=== PATIENT | female | born 1940 | race Caucasian/White ===

== ENCOUNTER → 2020-06-02 | Outpatient (CLI) | payer MEDICARE, OTHER ==
[2020-06-02 17:56] LABS: Source, Urine Voided
[2020-06-02 18:50] LABS: Bilirubin, Urine Neg (Neg); Blood, Urine 5+ (Neg); Glucose Qualitative, Urine Neg (Neg); Ketones, Urine Neg (Neg); Leukocyte Esterase, Urine 3+ (Neg); Nitrite, Urine Pos (Neg); Protein, Urine 2+ (Neg); Specific Gravity, Urine 1.015 (1.003-1.022); Urobilinogen, Urine NORM (Normal)
[2020-06-02 18:58] LABS: Appearance, Urine Hazy (Clear); Color, Urine Yellow (P-Yellow)
[2020-06-02 19:00] LABS: Bacteria Many /hpf; Red Blood Cells, Urine 25-50 /hpf (0-2); Squamous Epithelial Cells Rare /hpf (Few); White Blood Cells, Urine TNTC /hpf (0-5)
== END | disposition home or self-care (01) ==
LOC: LAB SHORT 14:09 → LAB 14:09
PROVIDERS: Advanced Practice Midwife
DX: R30.9 Painful micturition, unspecified (principal)
CPT/HCPCS: 81001; 87077; 87086; 87186

== ENCOUNTER 2020-09-18 13:57 | Emergency (ER) | payer MEDICARE, OTHER ==
[~2020-09-18] VITALS: Ht 152.4 cm; Wt 61.2 kg
[2020-09-18] MEDS ORDERED: FURO40 PO (16:11)
[2020-09-18] MEDS ORDERED: POTA10T PO (16:12)
[2020-09-18] MEDS ORDERED: Roxicodone5 MG PO (17:52)
[2020-09-18] MEDS ORDERED: Colace100 MG PO (17:52)
[2020-09-18] MEDS ORDERED: ZOFRAN4 MG PO (18:22)
== END 2020-09-18 19:21 | disposition home or self-care (01) ==
LOC: ER 13:57
DX: M54.5 Low back pain (principal); F17.200 Nicotine dependence, unspecified, uncomplicated; Z79.899 Other long term (current) drug therapy; Z88.0 Allergy status to penicillin; Z88.6 Allergy status to analgesic agent
CPT/HCPCS: 72100; 73502; 99283-25; J7512

== ENCOUNTER → 2021-05-25 | Outpatient (CLI) | payer OTHER | END | disposition home or self-care (01) | LOC: LAB 10:21 | DX: N89.8 Other specified noninflammatory disorders of vagina (principal) ==

== ENCOUNTER → 2021-06-17 | Outpatient (CLI) | payer OTHER ==
[~2021-06-17] MED LIST: Colace100 MG PO; FURO40 PO; POTA10T PO; Roxicodone5 MG PO; ZOFRAN4 MG PO
[2021-06-17 13:51] LABS: Source, Urine Catheter
[2021-06-17 15:29] LABS: Appearance, Urine Hazy (Clear); Bilirubin, Urine Neg (Neg); Blood, Urine 2+ (Neg); Glucose Qualitative, Urine Neg (Neg); Ketones, Urine Neg (Neg); Leukocyte Esterase, Urine 3+ (Neg); Nitrite, Urine Pos (Neg); Protein, Urine 1+ (Neg); Specific Gravity, Urine 1.005 (1.003-1.022); Urobilinogen, Urine NORM (Normal)
[2021-06-17 15:47] LABS: Color, Urine Pale Yellow (P-Yellow)
[2021-06-17 15:49] LABS: White Blood Cells, Urine 50-100 /hpf (0-5)
[2021-06-17 15:50] LABS: Bacteria Many /hpf; Squamous Epithelial Cells Mod /hpf (Few)
== END | disposition home or self-care (01) ==
LOC: LAB 09:25 → LAB SHORT 09:25
PROVIDERS: Obstetrics & Gynecology
DX: R33.9 Retention of urine, unspecified (principal)
CPT/HCPCS: 81001; 87077; 87086; 87186

== ENCOUNTER → 2021-08-18 | Outpatient (CLI) | payer OTHER ==
[2021-08-19 11:01] LABS: Candida species (DNA Probe) Negative (NEGATIVE); G. vaginalis (DNA Probe) Positive (NEGATIVE); T. vaginalis (DNA Probe) Negative (NEGATIVE)
== END | disposition home or self-care (01) ==
LOC: LAB SHORT 13:33 → LAB 13:33
PROVIDERS: Obstetrics & Gynecology
DX: A59.01 Trichomonal vulvovaginitis (principal)
CPT/HCPCS: 87480; 87510; 87660

== ENCOUNTER → 2021-11-23 | Outpatient (CLI) | payer OTHER ==
[2021-11-23 14:07] LABS: Candida species (DNA Probe) Negative (NEGATIVE); G. vaginalis (DNA Probe) Positive (NEGATIVE); T. vaginalis (DNA Probe) Negative (NEGATIVE)
== END | disposition home or self-care (01) ==
LOC: LAB SHORT 11:40
PROVIDERS: Obstetrics & Gynecology
DX: N89.8 Other specified noninflammatory disorders of vagina (principal)
CPT/HCPCS: 87480; 87510; 87660

== ENCOUNTER → 2022-01-25 | Outpatient (CLI) | payer OTHER ==
[~2022-01-25] MED LIST changes: +CIPR500 PO
[2022-01-25 12:19] LABS: Source, Urine Clean Catch
[2022-01-25 13:17] LABS: Appearance, Urine Hazy (Clear); Bilirubin, Urine Neg (Neg); Blood, Urine 4+ (Neg); Color, Urine Yellow (P-Yellow); Glucose Qualitative, Urine Neg (Neg); Ketones, Urine 1+ (Neg); Leukocyte Esterase, Urine 3+ (Neg); Nitrite, Urine Pos (Neg); Protein, Urine 2+ (Neg); Urobilinogen, Urine NORM (Normal)
[2022-01-25 13:34] LABS: White Blood Cells, Urine TNTC /hpf (0-5)
[2022-01-25 13:37] LABS: Bacteria Many /hpf; Mucus Light (0-Heavy); Squamous Epithelial Cells Rare /hpf (Few)
== END ==
LOC: LAB SHORT 12:17
PROVIDERS: Obstetrics & Gynecology
DX: R33.9 Retention of urine, unspecified (principal)
CPT/HCPCS: 81001

== ENCOUNTER → 2022-02-15 | Outpatient (CLI) | payer OTHER ==
[2022-02-16 10:18] LABS: Candida species (DNA Probe) Negative (NEGATIVE); G. vaginalis (DNA Probe) Negative (NEGATIVE); T. vaginalis (DNA Probe) Negative (NEGATIVE)
== END | disposition home or self-care (01) ==
LOC: LAB SHORT 10:28 → LAB 10:28
PROVIDERS: Obstetrics & Gynecology
DX: N89.8 Other specified noninflammatory disorders of vagina (principal)
CPT/HCPCS: 87480; 87510; 87660

== ENCOUNTER 2022-03-14 00:09 | Inpatient (IN) | payer MEDICARE, OTHER ==
[~2022-03-14] VITALS: Ht 152.4 cm; Wt 67.2 kg
[2022-03-14 01:52] LABS: BASOPHILS ABSOLUTE AUTO 0.03 K/mm3 (0.00-0.23); BASOPHILS PERCENT AUTO 0 % (0-2); EOSINOPHILS PERCENT AUTO 0 % (0-6); Hematocrit 35.2 % (33.0-51.0); Hemoglobin 11.2 g/dL (11.5-16.0); IMMATURE GRAN ABSOLUTE AUTO 0.07 K/mm3 (0.00-0.10); IMMATURE GRAN PERCENT AUTO 1 % (0-1); LYMPHOCYTES ABSOLUTE AUTO 0.84 K/mm3 (0.84-5.20); LYMPHOCYTES PERCENT AUTO 6 % (21-46); MONOCYTES ABSOLUTE AUTO 2.15 K/mm3 (0.16-1.47); MONOCYTES PERCENT AUTO 16 % (4-13); Mean Corpuscular HGB 28.2 pg (26.0-34.0); Mean Corpuscular HGB Conc 31.8 g/dL (31.5-36.5); Mean Corpuscular Volume 89 fL (80-100); Mean Platelet Volume 10.6 fL (9.1-12.4); NEUTROPHILS PERCENT AUTO 77 % (41-73); Platelet Count 244 K/mm3 (150-400); RDW Coefficient Variation 15.6 % (11.7-14.2); Red Blood Cell Count 3.97 M/mm3 (3.80-5.20); White Blood Cell Count 13.19 K/mm3 (4.00-11.30)
[2022-03-14 02:11] LABS: Alanine Aminotransfer (ALT/SGP 14 U/L (12-78); Albumin, Blood 2.9 g/dL (3.4-5.0); Albumin/Globulin Ratio 0.6 (0.8-1.8); Alk Phos 79 U/L (50-136); Anion Gap 5 mmol/L (6-16); Aspartate Aminotrans (AST/SGOT 10 U/L (12-37); Bilirubin, Total 0.9 mg/dL (0.1-1.0); Blood Urea Nitrogen 12 mg/dL (8-24); Bun/Creatinine Ratio 27.5 (12.0-20.0); CO2, Blood 31 mmol/L (21-32); Calcium, Blood 8.9 mg/dL (8.5-10.1); Chloride, Blood 98 mmol/L (98-108); Creatinine, Blood 0.44 mg/dL (0.40-1.00); Globulin, Blood 4.7 g/dL (2.2-4.0); Glomerular Filtration Rate >60 (60-); Glucose, Blood 136 mg/dL (70-99); Potassium, Blood 3.5 mmol/L (3.5-5.5); Sodium, Blood 134 mmol/L (136-145); Total Protein, Blood 7.6 g/dL (6.4-8.2)
[2022-03-14] MEDS ORDERED: LEVO750 PO (02:47)
[2022-03-14 03:45] LABS: Source, Urine Foley catheter
[2022-03-14 03:47] LABS: Bilirubin, Urine Neg (Neg); Blood, Urine 3+ (Neg); Glucose Qualitative, Urine Neg (Neg); Ketones, Urine 3+ (Neg); Leukocyte Esterase, Urine 2+ (Neg); Nitrite, Urine Pos (Neg); Protein, Urine 3+ (Neg); Specific Gravity, Urine 1.025 (1.003-1.022); Urobilinogen, Urine NORM (Normal)
[2022-03-14 04:38] LABS: SARS-Cov-2 (COVID-19) PCR, MMC NEGATIVE (NEGATIVE)
[2022-03-14 05:02] LABS: Appearance, Urine Cloudy (Clear); Color, Urine Yellow (P-Yellow)
[2022-03-14 05:04] LABS: Bacteria Many /hpf; Red Blood Cells, Urine 0-2 /hpf (0-2); Squamous Epithelial Cells Rare /hpf (Few)
--- NOTE | 2022-03-14 07:04 | NUR ---
SHIFT SUMMARY ASSUMED CARE OF PT AT 1900. PT IS A/OX4. [place]. HEAT SOUNDS TACHY, LUNG SOUNDS HAVE CRACKES IN THE L LUNG. PT DENIES SOB BUT C/O BACK PAIN, MEDICATED PER EMAR FOR PAIN BUT PT REQUESTING ICY/HOT. PASSED THIS ON TO DAYSHIFT NURSE IN REPORT DUE TO IT BEING AT THE END OF SHIFT. PT HAS A PROLAPSED BLADDER. ROBERTS PLACED BY PHYSICIAN, URINE DARK NICHOLE. PT WAS PLEASEANT AND HAD NO OTHER COMPLAINTS.
--- NOTE | 2022-03-14 08:00 | NUR ---
AM ASSESSMENT: Pt sitting at edge of bed. LS coarse, crackles and wheezing throughout. HR reg. BT positive. Pt states that she is having 6/10 back pain but denies wanting any medication for it. Pt has low grade temp so heat pack not offered. +4 edema in BLE, Pt states that she is often swollen in her BLE. Chronic patricia in place and draining dark, yellow urine. Pt states that she is "not sick" and wants to go home to take care of her kittens. Pt educated on need for antibiotics and for her lungs to improve. Pt encouraged to quit smoking. Pt non-receptive to education. Call light in reach. Will continue to monitor.
--- NOTE | 2022-03-14 17:56 | NUR ---
Shift Summary: Pt sitting at edge of bed. No acute changes this shift. Has been able to remain on RA throughout shift, even during ambulation. LS have remained with fine crackles and wheezing. Pt denies SOB. No changes in edema in BLE. Other VSS. Pt hopeful for discharge tomorrow. Will report to night RN.
--- NOTE | 2022-03-14 18:00 | NUR ---
HEPRIN GTT TURNED OFF PER ORDER. STABLE AT THIS TIME.
--- NOTE | 2022-03-15 06:22 | NUR ---
SHIFT SUMMARY PT RESTED WELL THROUGH THE NIGHT. ALERT AND ORIENTED, ABLE TO MAKE NEEDS KNOWN. SATS >95% ON ROOM AIR. NO TELE. NO PAIN. ROBERTS IN PLACE. VSS. ABX. PLANNING TO GO HOME TODAY. CALL LIGHT WITHIN REACH, BED IN LOWEST POSITION. WILL CONTINUE TO MONITOR.
[2022-03-15] MEDS ORDERED: CEFP200 PO (07:37)
[2022-03-15] MEDS ORDERED: DOXY100 PO (07:38)
[2022-03-15] MEDS ORDERED: VISBIOME 112.51 EACH PO (07:39)
[2022-03-15] MEDS ORDERED: IPRAT-ALBUT 0.5-3 ML INH (07:40)
--- NOTE | 2022-03-15 11:07 | NUR ---
DISCHARGE NOTE PT WAS ALERT AND ORIENTED T/O SHIFT, SHE ANSWERED QUESTIONS APPROPRIATELY AND WAS PLEASANT AND COOPERATIVE WITH CARE. SHE WAS SLOW TO RESPOND. VITAL SIGNS STABLE UPON DISCHARGE. SPO2 WAS 95% VIA ROOM AIR. PT DID REPORT FEELING SHORT OF BREATH UPON AMBULATION, SPO2 MAINTAINED >91% UPON AMBULATING. THIS NURSE DISCUSSED DISCHARGE INSTRUCTIONS WITH PT INCLUDING NEW MEDICATIONS, PHARMACY TO HAND STONER NEW MEDS, FOLLOW UP APPOINTMENTS. PT LEFT VIA WHEELCHAIR AT APPROX 1040 AND WAS ESCORTED BY [facility]. ALL OF PT BELONGINGS WENT WITH PT. IV IN LEFT WRIST WAS REMOVED BY TRANSPORTATION MANAGER UBALDO WITH SUPERVISION BY THIS NURSE. IV REMOVAL WAS WNL, W/ NO BLEEDING OR REDNESS.
== END 2022-03-15 10:40 | disposition home or self-care (01) | DRG 871 ==
LOC: ER 00:09 → PCU 04:26
PROVIDERS: Student in an Organized Health Care Education/Training Program; ADMIT Family Medicine
DX: A41.9 Sepsis, unspecified organism (principal); J18.9 Pneumonia, unspecified organism; N39.0 Urinary tract infection, site not specified; E87.1 Hypo-osmolality and hyponatremia; J44.0 Chronic obstructive pulmonary disease with (acute) lower respiratory infection; M79.89 Other specified soft tissue disorders; R60.0 Localized edema; D64.9 Anemia, unspecified; J44.9 Chronic obstructive pulmonary disease, unspecified; F17.210 Nicotine dependence, cigarettes, uncomplicated; Z96.641 Presence of right artificial hip joint; Z20.822 Contact with and (suspected) exposure to COVID-19; Z88.0 Allergy status to penicillin; Z88.1 Allergy status to other antibiotic agents; Z88.6 Allergy status to analgesic agent; T78.40XA Allergy, unspecified, initial encounter; T36.3X5A Adverse effect of macrolides, initial encounter
CPT/HCPCS: 36415; 71046; 80053; 81001; 83605; 83880; 84484; 85025; 87040; 87086; 93005; 93010; 93970; 94640; 94644; 94664; 94760; 96374; 99285-25; A9270; J0456; J0696; J1650; J1956; J7040; J7060; U0004

== ENCOUNTER → 2022-06-01 | Outpatient (CLI) | payer MEDICARE, OTHER ==
[~2022-06-01] MED LIST changes: +CEFP200 PO; +DOXY100 PO; +IPRAT-ALBUT 0.5-3 ML INH; +LEVO750 PO; +VISBIOME 112.51 EACH PO
[2022-06-01 13:30] LABS: Source, Urine Clean Catch
[2022-06-01 15:01] LABS: Appearance, Urine Cloudy (Clear); Bilirubin, Urine Neg (Neg); Blood, Urine 4+ (Neg); Color, Urine Yellow (P-Yellow); Glucose Qualitative, Urine Neg (Neg); Ketones, Urine Neg (Neg); Leukocyte Esterase, Urine 3+ (Neg); Nitrite, Urine Pos (Neg); Protein, Urine 2+ (Neg); Urobilinogen, Urine NORM (Normal)
[2022-06-01 15:24] LABS: Bacteria Many /hpf; Squamous Epithelial Cells Rare /hpf (Few); Transitional Epithelial Cells Rare /hpf (0-Rare); White Blood Cells, Urine TNTC /hpf (0-5)
== END | disposition home or self-care (01) ==
LOC: LAB SHORT 13:27
PROVIDERS: Obstetrics & Gynecology
DX: R33.9 Retention of urine, unspecified (principal)
CPT/HCPCS: 81001; 87077; 87086; 87186

== ENCOUNTER → 2022-09-07 | Outpatient (CLI) | payer OTHER ==
[2022-09-08 11:41] LABS: Candida species (DNA Probe) Negative (NEGATIVE); G. vaginalis (DNA Probe) Positive (NEGATIVE); T. vaginalis (DNA Probe) Negative (NEGATIVE)
== END | disposition home or self-care (01) ==
LOC: LAB 10:15 → LAB SHORT 10:15
PROVIDERS: Family Medicine
DX: N89.8 Other specified noninflammatory disorders of vagina (principal)
CPT/HCPCS: 87480; 87510; 87660

== ENCOUNTER → 2022-09-27 | Outpatient (CLI) | payer OTHER | END | disposition home or self-care (01) | DX: N39.0 Urinary tract infection, site not specified (principal) ==

== ENCOUNTER 2022-11-18 09:15 | Observation (INO) | payer MEDICARE, OTHER ==
[~2022-11-18] VITALS: Ht 154.9 cm; Wt 61.2 kg
[2022-11-18 09:53] LABS: BASOPHILS ABSOLUTE AUTO 0.02 K/mm3 (0.00-0.23); BASOPHILS PERCENT AUTO 0 % (0-2); EOSINOPHILS PERCENT AUTO 0 % (0-6); Hematocrit 36.7 % (33.0-51.0); Hemoglobin 12.5 g/dL (11.5-16.0); IMMATURE GRAN ABSOLUTE AUTO 0.07 K/mm3 (0.00-0.10); IMMATURE GRAN PERCENT AUTO 1 % (0-1); LYMPHOCYTES ABSOLUTE AUTO 0.63 K/mm3 (0.84-5.20); LYMPHOCYTES PERCENT AUTO 4 % (21-46); MONOCYTES ABSOLUTE AUTO 1.59 K/mm3 (0.16-1.47); MONOCYTES PERCENT AUTO 11 % (4-13); Mean Corpuscular HGB 31.7 pg (26.0-34.0); Mean Corpuscular HGB Conc 34.1 g/dL (31.5-36.5); Mean Corpuscular Volume 93 fL (80-100); Mean Platelet Volume 10.7 fL (9.1-12.4); NEUTROPHILS ABSOLUTE AUTO 12.62 K/mm3 (1.96-9.15); NEUTROPHILS PERCENT AUTO 85 % (41-73); Platelet Count 191 K/mm3 (150-400); RDW Standard Deviation 48.4 fL (35.1-46.3); Red Blood Cell Count 3.94 M/mm3 (3.80-5.20); White Blood Cell Count 14.93 K/mm3 (4.00-11.30)
[2022-11-18 10:09] LABS: Albumin, Blood 3.3 g/dL (3.4-5.0); Bilirubin, Total 1.1 mg/dL (0.1-1.0); Bun/Creatinine Ratio 38.7 (12.0-20.0); Calcium, Blood 8.4 mg/dL (8.5-10.1); Creatinine, Blood 0.44 mg/dL (0.40-1.00); Globulin, Blood 3.3 g/dL (2.2-4.0); Magnesium, Blood 1.8 mg/dL (1.6-2.4); Potassium, Blood 3.4 mmol/L (3.5-5.5); Total Protein, Blood 6.6 g/dL (6.4-8.2)
[2022-11-18 12:06] LABS: Source, Urine Straight Cath
[2022-11-18 12:20] LABS: Appearance, Urine Clear (Clear); Bilirubin, Urine Neg (Neg); Blood, Urine 3+ (Neg); Color, Urine Yellow (P-Yellow); Glucose Qualitative, Urine Neg (Neg); Ketones, Urine 2+ (Neg); Leukocyte Esterase, Urine Neg (Neg); Nitrite, Urine Neg (Neg); Protein, Urine 1+ (Neg); Urobilinogen, Urine NORM (Normal)
[2022-11-18 12:35] LABS: White Blood Cells, Urine 0-2 /hpf (0-5)
[2022-11-18 12:41] LABS: Squamous Epithelial Cells Rare /hpf (Few)
[2022-11-18 12:44] LABS: Mucus Heavy (0-Heavy)
[2022-11-18 12:45] LABS: Influenza A, PCR NEGATIVE (NEGATIVE); Influenza B, PCR NEGATIVE (NEGATIVE); Resp Syncytial Virus, PCR NEGATIVE (NEGATIVE); SARS-Cov-2 (COVID-19) PCR, MMC NEGATIVE (NEGATIVE)
[2022-11-18 12:45] LABS: Bacteria Few /hpf
--- NOTE | 2022-11-18 17:27 | NUR ---
CARE CONF WITH DR MOYER. PT LIVES INDEPENDENTLY AT [facility] IN [place] HERE WITH C/O LOWER BACK PAIN. PT IS REFUSING TO TAKE ALL MEDICATIONS (AND HAS FOR A WHILE) SHE IS REFUSING CARE AND VERBALIZES THAT SHE JUST WANTS TO BE COMFORTABLE. PT IS UNABLE TO GO BACK TO [facility] SHE IS REQUIRING MORE CARE AND PLAN IS TO ADMIT HER FOR COMFORT CARE AND PLACEMENT. COMFORT CARE ORDERS PLACED PER V/O DR MOYER. VISIT MADE TO PT IN THE ED, SHE IS LAYING SUPINE IN BED. SHE JUST RECEIVED ROXINOL FOR PAIN AND APPEARS TO BE RESTING COMF-FACE IS RELAXED AND BREATHING IS EVEN UNLABORED. PT AWAKENS EASILY TO TOUCH AND VOICE, REPORTS HER PAIN IS BETTER AND KNOWS SHE IS IN THE HOSITAL. SHE VERBALIZES THAT SHE JUST WANTS BE TO BE COMFORTABLE. PT VERBALIZES SHE DOESNT HAVE ANY FAMILY TO CONTACT. PLAN TO BEW ADMITED TO HOSP FOR COMFORT AND POSS PLACEMENT. PALLIATIVE CARE WILL CONT TO FOLLOW.
--- NOTE | 2022-11-18 18:43 | NUR ---
SHIFT SUMMARY MS RICO WAS ADMITTED TO THE MEDICAL UNIT FROM THE ER AT 1720HRS TODAY. NO FAMILY PRESENT ON ADMISSION. TRANSFERED TO BED ON A SLIDE SHEET. SHE IS ORIENTATED X3, ABLE TO TELL ME HER NAME, LOCATION AND DATE. SHE PRESSED ON HER RIGHT CHEST UNDER HER BREAST ON ARRIVAL, WHICH SEEMED PAINFUL, BUT WHEN WE GOT HER POSITIONED ON HER RIGHT SIDE IN BED SHE SAID SHE WAS COMFORTABLE WITH NO PAIN. SHE HAS BEEN SLEEPING SINCE. NO RESP DISTRESS. OFFERED FLUIDS/FOOD ON ARRIVAL WHICH SHE DECLINED. BED LOW, CALL LIGHT IN REACH, BED ALARM ON.
[2022-11-19] MEDS ORDERED: ESTRADIOL42.5 GM VAG (00:21)
--- NOTE | 2022-11-19 03:32 | NUR ---
YARD LABORER SUMMARY PT A/OX3. ABLE TO TELL ME WHERE AT BUT NOT RECALL WHY. REVIEWED COMFORT CARE PLAN WITH PT. UP TO BATHROOM SBA W/FWW. COMP OF 10/10 PAIN IN BACK; PT SHOULDERS TENSE WITH NECK AND ARMS TURNED IN. PAIN MEDS P/EMAR. PT REQ IV REMOVED. ADVISED I WOULD CONTACT F/PO PAIN MEDS. PT AGREEABLE TO LEAVE IV UNTIL NEW ORDER. PT SLEPT WELL T/O THE NIGHT. PT NOT USING CALL LIGHT; BED ALARM SET. CONT W/Q4 COMFORT ASSESSMENTS. ORIENTED TO ROOM AND CALL LIGHT; CALL LIGHT ACCESSIBLE.
--- NOTE | 2022-11-19 11:05 | NUR ---
RN NOTE MS RICO IS ABLE TO ANSWER ORIENTATION QUESTIONS FOR NAME, HOSPITAL IN [place] AND DATE. SHE HAS CONFUSED CONVERSATION AND IS FORGETFUL. SHE IS ABLE TO FOLLOW DIRECTIONS. SHE IS SITTING UP IN THE CHAIR, HAS WORKED WITH PHYSICAL THERAPY AND WALKED WITH WALKER/GAIT BELT. SHE HAS DENIED PAIN THIS MORNING, SAID HER BACK HURTS WHEN SHE PRESSES ON IT, BUT OTHERWISE NOT SORE. IN CHAIR. CHAIR ALARM ON, CALL LIGHT IN REACH.
--- NOTE | 2022-11-19 12:30 | NUR ---
Comfort care visit Visited with Missy this afternoon. She is sitting up in her chair. She denies pain at present, however she reports that her back is uncomfortable when she moves around or puts pressure on it. She states that she has no recollection of her fall or even coming to the hospital. No family in room during visit. Msisy is hoping to go home soon. She lives at [facility] in the independent living area. She reports that she has a cat who is currenlty be cared for by a friend. She states she is interested in not having to [facility]. She is alert and oriented during our conversation this afternoon. Discussed hospice as a possible option for after care which was discussed earlier with patient by the hospitalist. She is interested in some information, however she states she doesn't want to make any decisions at this time. Provided hospice brochure and considering comfort care booklet for information so that she can read about hospice and consider if this is a program that she may be interested in. She thanked this headline writer for the information. Her lunch tray was delivered during the end of our conversation, so the visit was kept short so that she could eat. Provided Missy with the number to the palliative care office if she had any questions about hospice.
--- NOTE | 2022-11-19 15:49 | NUR ---
RN NOTE MS RICO AND HER FRIEND VALARIE HAVE BEEN GIVEN WRITTEN AND VERBAL DISCHARGE INSTRUCTIONS AND VERBALISE UNDERSTANDING. VALARIE IS GIVING MS RICO A RIDE HOME, SHE LIVES IN THE ROOM OPPOSITE MS RICO AND SAID THAT MS RICO IS GOING TO BE STAYING WITH HER FOR THE TIME BEING. PIV REMOVED INTACT. SHE LEFT VIA WHEELCHAIR FOR DISCHARGE AT 1554HRS. SHE DENIED PAIN OR CONCERNS AT TIME OF DISCHARGE.
== END 2022-11-19 15:54 | disposition home health service (06) ==
LOC: ER 09:15 → MEDS 16:32 → ER 16:32 → MEDS 16:32
PROVIDERS: Emergency Medicine; ADMIT Family Medicine
DX: M54.9 Dorsalgia, unspecified (principal); Z51.5 Encounter for palliative care; J44.9 Chronic obstructive pulmonary disease, unspecified; W18.30XA Fall on same level, unspecified, initial encounter; Z20.822 Contact with and (suspected) exposure to COVID-19
CPT/HCPCS: 0241U; 36415; 70450; 71045; 72125; 72128; 72131; 73502; 80053; 81001; 83605; 83735; 84484; 85025; 93005; 93010; 97161; A9270; J0744; J1170; J2270; J7030

== ENCOUNTER → 2022-12-22 | Outpatient (CLI) | payer MEDICARE, OTHER ==
[~2022-12-22] MED LIST changes: +ESTRADIOL42.5 GM VAG
== END | disposition home or self-care (01) ==
LOC: LAB SHORT 18:59
DX: R30.0 Dysuria (principal)
CPT/HCPCS: 87086

== ENCOUNTER 2023-01-27 10:53 | Emergency (ER) | payer OTHER ==
[~2023-01-27] VITALS: Ht 157.5 cm; Wt 49.9 kg
== END 2023-01-27 14:15 | disposition home or self-care (01) ==
LOC: ER 10:53
DX: S22.41XA Multiple fractures of ribs, right side, initial encounter for closed fracture (principal); J44.9 Chronic obstructive pulmonary disease, unspecified; F17.210 Nicotine dependence, cigarettes, uncomplicated; Z88.0 Allergy status to penicillin; Z88.6 Allergy status to analgesic agent; Z88.1 Allergy status to other antibiotic agents; W19.XXXA Unspecified fall, initial encounter
CPT/HCPCS: 71101

== ENCOUNTER 2023-03-29 12:23 | Inpatient (IN) | payer MEDICARE, OTHER ==
[~2023-03-29] VITALS: Ht 165.1 cm; Wt 59.1 kg
[2023-03-29 13:31] LABS: BASOPHILS ABSOLUTE AUTO 0.03 K/mm3 (0.00-0.23); BASOPHILS PERCENT AUTO 0 % (0-2); EOSINOPHILS PERCENT AUTO 0 % (0-6); Hematocrit 39.4 % (33.0-51.0); Hemoglobin 12.8 g/dL (11.5-16.0); IMMATURE GRAN ABSOLUTE AUTO 0.04 K/mm3 (0.00-0.10); IMMATURE GRAN PERCENT AUTO 0 % (0-1); LYMPHOCYTES ABSOLUTE AUTO 0.76 K/mm3 (0.84-5.20); LYMPHOCYTES PERCENT AUTO 7 % (21-46); MONOCYTES ABSOLUTE AUTO 0.89 K/mm3 (0.16-1.47); MONOCYTES PERCENT AUTO 8 % (4-13); Mean Corpuscular HGB 30.8 pg (26.0-34.0); Mean Corpuscular HGB Conc 32.5 g/dL (31.5-36.5); Mean Corpuscular Volume 95 fL (80-100); Mean Platelet Volume 10.9 fL (9.1-12.4); NEUTROPHILS ABSOLUTE AUTO 8.86 K/mm3 (1.96-9.15); NEUTROPHILS PERCENT AUTO 84 % (41-73); NRBC ABSOLUTE 0.02 K/mm3 (0.00-0.02); NRBC Auto 0.2 /100 WBC (0.0-0.2); Platelet Count 188 K/mm3 (150-400); RDW Coefficient Variation 13.7 % (11.7-14.2); RDW Standard Deviation 48.1 fL (35.1-46.3); Red Blood Cell Count 4.16 M/mm3 (3.80-5.20); White Blood Cell Count 10.58 K/mm3 (4.00-11.30)
[2023-03-29 13:39] LABS: Source, Urine Straight Cath
[2023-03-29 13:44] LABS: Appearance, Urine Hazy (Clear); Bilirubin, Urine Neg (Neg); Blood, Urine 2+ (Neg); Color, Urine Yellow (P-Yellow); Glucose Qualitative, Urine Neg (Neg); Ketones, Urine 1+ (Neg); Leukocyte Esterase, Urine Neg (Neg); Nitrite, Urine Pos (Neg); Protein, Urine 1+ (Neg); Specific Gravity, Urine 1.025 (1.003-1.022); Urobilinogen, Urine NORM (Normal)
[2023-03-29 13:51] LABS: U Amphetamine Screen Not Detected; U Barbituate Screen Not Detected; U Benzodiazapine Screen Not Detected; U Buprenorphine Screen Not Detected; U Cannabinoids Screen Not Detected; U Cocaine Screen Not Detected; U Methadone Screen Not Detected; U Methamphetamine Screen Not Detected; U Opiates Screen Not Detected; U Oxycodone Screen Not Detected; U Phencyclidine Screen Not Detected; U Propoxyphene Screen Not Detected
[2023-03-29 14:10] LABS: Alanine Aminotransfer (ALT/SGP 18 U/L (12-78); Albumin, Blood 3.2 g/dL (3.4-5.0); Alk Phos 86 U/L (50-136); Anion Gap 4 mmol/L (6-16); Aspartate Aminotrans (AST/SGOT 24 U/L (12-37); Bilirubin, Total 0.8 mg/dL (0.1-1.0); Blood Urea Nitrogen 19 mg/dL (8-24); Bun/Creatinine Ratio 40.1 (12.0-20.0); CO2, Blood 31 mmol/L (21-32); CPK Creatine Kinase 138 U/L (26-193); Calcium, Blood 8.7 mg/dL (8.5-10.1); Chloride, Blood 101 mmol/L (98-108); Creatinine, Blood 0.47 mg/dL (0.40-1.00); Ethanol (Alcohol), Blood, Med <3 mg/dL; Globulin, Blood 3.3 g/dL (2.2-4.0); Glomerular Filtration Rate 96 (60-); Glucose, Blood 126 mg/dL (70-99); Potassium, Blood 4.1 mmol/L (3.5-5.5); Sodium, Blood 136 mmol/L (136-145); Total Protein, Blood 6.5 g/dL (6.4-8.2)
[2023-03-29 14:52] LABS: Amorphous Light (0-Heavy); Bacteria Many /hpf
[2023-03-29 14:53] LABS: Red Blood Cells, Urine 0-2 /hpf (0-2); Squamous Epithelial Cells Rare /hpf (Few); White Blood Cells, Urine 0-2 /hpf (0-5)
[2023-03-29 14:56] LABS: International Normalized Ratio 1.06; Prothrombin Time Results 11.1 Sec (9.7-11.5)
[2023-03-29 19:00] LABS: PCO2 Arterial 41.6 mmHg (35-45); PO2 Arterial 57.7 mmHg (80-100); pH Blood Arterial 7.48 (7.35-7.45)
[2023-03-29 21:13] VITALS: BP 169/102
[2023-03-29 22:07] LABS: Adenovirus Not Detected (NOT DETECT); Coronavirus 229E Not Detected (NOT DETECT); Coronavirus HKU1 Not Detected (NOT DETECT); Coronavirus NL63 Not Detected (NOT DETECT)
[2023-03-29 22:08] LABS: Bordetella pertussis Not Detected (NOT DETECT); Chlamydophila pneumoniae Not Detected (NOT DETECT); Coronavirus OC43 Not Detected (NOT DETECT); Human Metapneumovirus Not Detected (NOT DETECT); Human Rhinovirus/Enterovirus Not Detected (NOT DETECT); Influenza A/2009-H1 Not Detected (NOT DETECT); Influenza A/H1 Not Detected (NOT DETECT); Influenza A/H3 Not Detected (NOT DETECT); Influenza B Not Detected (NOT DETECT); Mycoplasma pneumoniae Not Detected (NOT DETECT); Parainfluenza Virus 1 Not Detected (NOT DETECT); Parainfluenza Virus 2 Not Detected (NOT DETECT); Parainfluenza Virus 3 Not Detected (NOT DETECT); Parainfluenza Virus 4 Not Detected (NOT DETECT); Respiratory Syncytial Virus Not Detected (NOT DETECT); SARS-Cov-2 (COVID-19), BioFire Not Detected (NOT DETECT)
--- NOTE | 2023-03-29 22:15 | NUR ---
TRANSFER NOTE THIS RN RECEIVED REPORT FROM JACKIE SANTANA IN THE ED VIA PHONE. PATIENT TRANSFERRED TO U 10 AT 2014. PATIENT SLID FROM GURNEY TO BED WITH STAFF ASSISTANCE. PATIENT NOTED TO ONLY BE ORIENTED TO SELF, YELLING FOR "HELP, NOT REDIRECTABLE, AND CONSISTENTLY PULLING AT ALL LINES AT TIME OF TRANSFER. BILATERAL SOFT WRIST RESTRAINTS IN PLACE. CALL PLACED TO MD BANKS REGARDING FACILITY BEING OUT OF STOCK OF ZYPREXA. PATIENT MEDICATED WITH IM HALDOL PER EMAR. PATIENT CONTINUES BEHAVIOR DESPITE MEDICATION. CAMERA ON IN ROOM FOR SAFETY. BED ALARM ON. ST ON MONITOR WITH HR 120-130'S. HTN NOTED. PATIENT CONTINUES TO BE AGGITATED AND RESTLESS IN BED. ON RA WITH SPO2 >92%. RR 22-24. WHEEZING NOTED IN UPPER LOBES. BS+. PPP. AFEBRILE. NS INFUSING PER EMAR. REPOSITIONING Q2HRS. FREQUENT CHECKS FOR SAFETY AND REASSURANCE. PATIENT IS [place]. BED IN LOWEST POSITION. THIS RN IS SITTING AT COMPUTER IN VIEW OF PATIENT'S ROOM.
[2023-03-29 23:00] VITALS: BP 139/85
[2023-03-30] VITALS (7 sets, daily range): BP systolic 107–148; BP diastolic 64–91
[2023-03-30 04:44] LABS: BASOPHILS ABSOLUTE AUTO 0.01 K/mm3 (0.00-0.23); BASOPHILS PERCENT AUTO 0 % (0-2); EOSINOPHILS PERCENT AUTO 0 % (0-6); Hematocrit 36.5 % (33.0-51.0); IMMATURE GRAN ABSOLUTE AUTO 0.03 K/mm3 (0.00-0.10); IMMATURE GRAN PERCENT AUTO 1 % (0-1); LYMPHOCYTES ABSOLUTE AUTO 0.29 K/mm3 (0.84-5.20); LYMPHOCYTES PERCENT AUTO 5 % (21-46); MONOCYTES ABSOLUTE AUTO 0.17 K/mm3 (0.16-1.47); MONOCYTES PERCENT AUTO 3 % (4-13); Mean Corpuscular HGB 31.1 pg (26.0-34.0); Mean Corpuscular HGB Conc 32.9 g/dL (31.5-36.5); Mean Corpuscular Volume 95 fL (80-100); Mean Platelet Volume 10.7 fL (9.1-12.4); NEUTROPHILS ABSOLUTE AUTO 5.31 K/mm3 (1.96-9.15); NEUTROPHILS PERCENT AUTO 91 % (41-73); Platelet Count 155 K/mm3 (150-400); RDW Coefficient Variation 13.7 % (11.7-14.2); RDW Standard Deviation 47.8 fL (35.1-46.3); Red Blood Cell Count 3.86 M/mm3 (3.80-5.20); White Blood Cell Count 5.81 K/mm3 (4.00-11.30)
[2023-03-30 05:06] LABS: Albumin, Blood 2.8 g/dL (3.4-5.0); Albumin/Globulin Ratio 0.9 (0.8-1.8); Bilirubin, Total 0.7 mg/dL (0.1-1.0); Bun/Creatinine Ratio 34.3 (12.0-20.0); Calcium, Blood 8.3 mg/dL (8.5-10.1); Creatinine, Blood 0.44 mg/dL (0.40-1.00); Globulin, Blood 3.1 g/dL (2.2-4.0); Magnesium, Blood 1.8 mg/dL (1.6-2.4); Phosphorus, Blood 3.1 mg/dL (2.5-4.9); Potassium, Blood 3.9 mmol/L (3.5-5.5); Total Protein, Blood 5.9 g/dL (6.4-8.2)
--- NOTE | 2023-03-30 06:10 | NUR ---
SHIFT SUMMARY NO ACUTE CHANGES OVERNIGHT. PATIENT CONTINUES TO BE ALERT TO SELF BUT APPEARS LESS AGGITATED AND FOLLOWING MORE SIMPLE COMMANDS. SR ON MONITOR WITH HR 80-90'S. BP STABLE. AFEBRILE. SPO2 >92% ON 2L. PATIENT SLEPT MOST OF THIS SHIFT AFTER IM HALDOL GIVEN PER EMAR. PATIENT OCCASIONALLY PULLING AT LINES AND MOVING LEGS. CAMERA CONTINUES TO BE ON IN THE ROOM. BED ALARM ON. LR INFUSING PER EMAR. PUREWICK IN PLACE. REPOSITIONING Q2HRS. BILATERAL WRIST RESTRAINTS. BED IN LOWEST POSITION AND CALL LIGHT WITHIN REACH. THIS RN WILL CONTINUE TO MONITOR UNTIL SHIFT CHANGE AT 0700.
--- NOTE | 2023-03-30 13:21 | NUR ---
PT ALERT AND ORIENTED TO SELF. UNABLE TO FULLY ASSESS ORIENTATION. PT [place] AND INTERMITTENTLY RESPONDS TO QUESTIONS. PT PLEASANT AND COOPERATIVE WITH CARE WHEN AWAKE. PT HAS BEEN SLEEPING THE MAJORITY OF THE SHIFT. WHEEZES AUSCULTATED THROUGHOUT, DIMINISHED AT BASES, 3L NC SATING ABOVE 94%. HR SR 80'S-90'S, PT DENIES CHEST PAIN/PRESSURE. SCATTERED BRUISING & SCABS THROUGHOUT. BLE EDEMA NOTED. PT INCONTINENT, WICKING SYSTEM IN PLACE, ATTENDS ON. REPOSITION Q 2 HRS. PT RESTING IN BED, CALL LIGHT WITHIN REACH.
--- NOTE | 2023-03-30 14:32 | NUR ---
NO ACUTE CHANGES. PT RESTING IN BED. SPEECH CLEARED PT FOR MECHANICAL SOFT & NECTAR THICK WITH CRUSHED MEDS. CALL LIGHT WITHIN REACH.
--- NOTE | 2023-03-30 18:05 | NUR ---
PT HAD NON SYMPTOMATIC 3 SECOND RUN OF SVT PER TELE MONITOR, PROVIDER NOTIFIED. NO ACUTE CHANGES, SEE PREVIOUS NOTES. PT EATING DINNER WHILE WATCHING TV. CALL LIGHT WITHIN REACH.
--- NOTE | 2023-03-31 02:41 | NUR ---
END OF SHIFT: PATIENT HAS BEEN VERY HARD OF HEARING, LEAVING MUCH TO BE ASSESSED AT TIMES, ESPECIALLY WITH ORIENTATION. PATIENT HAS BEEN PLEASANT, COOPERATIVE WITH CARE. PULSE OXIMETRY IN PROGRESS, PATIENT HAS BEEN AWAKE WHEN WALKING BY, MOST OF THE TIME. NO ACTIVE SIGNS OF CARDIAC DISTRESS. STILL ON NC 0-3L TITRATING BEINF PREFORMED BY RT. VIRTUAL SITTER AT THE BEDSIDE. NO ACTIVE CONCERNS FROM THIS RN, Q2 TURNS PREFORMED AUXILLARY STAFF.
[2023-03-31 04:50] VITALS: BP 151/104
[2023-03-31 07:01] VITALS: BP 158/95
[2023-03-31 11:00] VITALS: BP 137/88
--- NOTE | 2023-03-31 13:52 | NUR ---
PT ALERT AND ORIENTED TO SELF, PT EXTREMELY HARD OF HEARING SO UNABLE TO FULLY ASSESS. PT PLEASANT AND COOPERATIVE WITH CARE. LUNG SOUNDS DIMINISHED, PT HAS HX OF COPD, 02 SAT AROUND 90% ON RA, PT DENIES SOB. HR ST 100'S, PT DENIES CHEST PAIN/PRESSURE, BP STABLE. PW & ATTENDS IN PLACE FOR PT DUE TO INCONTINENCE. PT WAS CLEARED BY SPEECH THERAPY FOR THIN LIQUIDS/MECHANICAL SOFT. PT IN GOOD SPIRITS TODAY. RESTING IN BED AND WATCHING TV, CALL LIGHT WITHIN REACH.
--- NOTE | 2023-03-31 14:50 | NUR ---
PT UP IN CHAIR COLORING AND WATCHING TV. CHAIR ALARM SET.
[2023-03-31 15:11] VITALS: BP 129/80
--- NOTE | 2023-03-31 18:07 | NUR ---
WHILE SITTING IN CHAIR W/CHAIR ALARM, PT PULLED OUT HER IV W/O ACTIVATING ALARM. CHANTELLE SANTANA INSERTED NEW IV INTO PATIENT. PT TRANSFERRED VIA WHEELCHAIR WITH ALL OF HER BELONGINGS COLLECTED IN PATIENT BAGS BY JASPER WONG RN. JASPER WONG GAVE REPORT TO NURSE TAKING OVER PT'S CARE.
--- NOTE | 2023-03-31 18:37 | NUR ---
181 RECEIVED PT TO RM 306 FROM U 10 VIA W/C. PT ABLE TO TX TO BED WITH 1P ASSIST USING FWW. PT IS VERY WEAK AND WALES, MAKING IT DIFFICULT TO COMMUNICATE WITH. PER REPORT FROM JASPER, WRITING ON WHITE BOARD HAS BEEN HELPFUL. PT ADMITTED FOR RESP FAILURE/COPD EXAC, ALSO FOUND TO HAVE UTI. LEVAQUIN INFUSING AT THIS TIME. PT WITH HX OF COPD AND HEAVY SMOKER. PT REQUESTING TO GO OUT TO [facility] SOON SHE ARRIVED. PT REFUSED NICOTINE PATCH. PER REPORT, PT HAS BEEN NONCOMPLIANT WITH MEDS AT HOME. FREQUENT FALLS AT HOME WELL. NO KNOWN FAMILY, JUST A FRIEND NAMED VALARIE. SLEEP STUDY DONE LAST NIGHT; RESULTS SHOWING 2L O2 NEEDED AT HS. PT DENIED FURTHER NEEDS AT THIS TIME. CALL LT IN REACH. BED ALARM ON FOR SAFETY.
[2023-03-31 20:28] VITALS: BP 163/109
[2023-04-01 04:35] LABS: BASOPHILS ABSOLUTE AUTO 0.02 K/mm3 (0.00-0.23); BASOPHILS PERCENT AUTO 0 % (0-2); EOSINOPHILS PERCENT AUTO 0 % (0-6); Hematocrit 46.6 % (33.0-51.0); Hemoglobin 15.3 g/dL (11.5-16.0); IMMATURE GRAN ABSOLUTE AUTO 0.05 K/mm3 (0.00-0.10); IMMATURE GRAN PERCENT AUTO 0 % (0-1); LYMPHOCYTES ABSOLUTE AUTO 1.02 K/mm3 (0.84-5.20); LYMPHOCYTES PERCENT AUTO 9 % (21-46); MONOCYTES PERCENT AUTO 16 % (4-13); Mean Corpuscular HGB 30.8 pg (26.0-34.0); Mean Corpuscular HGB Conc 32.8 g/dL (31.5-36.5); Mean Corpuscular Volume 94 fL (80-100); Mean Platelet Volume 10.6 fL (9.1-12.4); NEUTROPHILS ABSOLUTE AUTO 8.59 K/mm3 (1.96-9.15); NEUTROPHILS PERCENT AUTO 75 % (41-73); Platelet Count 190 K/mm3 (150-400); RDW Coefficient Variation 14.1 % (11.7-14.2); RDW Standard Deviation 48.4 fL (35.1-46.3); Red Blood Cell Count 4.96 M/mm3 (3.80-5.20); White Blood Cell Count 11.48 K/mm3 (4.00-11.30)
[2023-04-01 04:51] LABS: Bun/Creatinine Ratio 32.8 (12.0-20.0); Calcium, Blood 9.2 mg/dL (8.5-10.1); Creatinine, Blood 0.49 mg/dL (0.40-1.00); Potassium, Blood 3.9 mmol/L (3.5-5.5)
[2023-04-01 04:52] VITALS: BP 170/101
[2023-04-01 07:41] VITALS: BP 152/88
--- NOTE | 2023-04-01 18:02 | NUR ---
SHIFT SUMMARY/TRANSFER NOTE PT AOX0-1, VERY CONFUSED AND AT TIMES AGGRESSIVE VERBALLY. SHE WAS VERY ACTIVE TODAY, ATTEMPTING TO GET OUT OF BED MULTIPLE TIMES AND REFUSING TO GET BACK INTO THE BED. A RECLINER WAS BROUGHT IN AND THAT HELPED BUT SOON SHE WAS GETTING OUT OF THE CHAIR AND WANTING TO WALK AROUND ON THE FLOOR. WHILE WALKING AROUND THE FLOOR, SHE WOULD YELL IN PT'S ROOMS. THE PT WOULD BE YELLING WORDS AND NAMES THAT WERE NOT APPLICABLE TO THE SETTING. IV HALDOL WAS ADMINISTERED AND IT APPEARED TO HELP THE PT CALM DOWN A BIT. THE REFORESTATION WORKER WALKED WITH HER IN THE RECLILNER THROUGHOUT THE HALLS BECAUSE THE PT WOULD ATTEMPT TO GET UP AND LEAVE, YELLING, IF ATTEMPTING TO RE-ENTER THE ROOM. THE PT HAS SINCE BEE TRANSFERRED BACK INTO THE SCU ON CAMERA. REPORT WAS GIVEN TO MAX RADER.
[2023-04-01 19:44] VITALS: BP 144/95
[2023-04-02 04:10] VITALS: BP 167/104
[2023-04-02 05:42] LABS: BASOPHILS ABSOLUTE AUTO 0.02 K/mm3 (0.00-0.23); BASOPHILS PERCENT AUTO 0 % (0-2); EOSINOPHILS ABSOLUTE AUTO 0.01 K/mm3 (0.00-0.68); EOSINOPHILS PERCENT AUTO 0 % (0-6); Hematocrit 47.6 % (33.0-51.0); Hemoglobin 15.6 g/dL (11.5-16.0); IMMATURE GRAN ABSOLUTE AUTO 0.02 K/mm3 (0.00-0.10); IMMATURE GRAN PERCENT AUTO 0 % (0-1); LYMPHOCYTES ABSOLUTE AUTO 1.12 K/mm3 (0.84-5.20); LYMPHOCYTES PERCENT AUTO 13 % (21-46); MONOCYTES ABSOLUTE AUTO 1.33 K/mm3 (0.16-1.47); MONOCYTES PERCENT AUTO 15 % (4-13); Mean Corpuscular HGB 30.2 pg (26.0-34.0); Mean Corpuscular HGB Conc 32.8 g/dL (31.5-36.5); Mean Corpuscular Volume 92 fL (80-100); NEUTROPHILS ABSOLUTE AUTO 6.46 K/mm3 (1.96-9.15); NEUTROPHILS PERCENT AUTO 72 % (41-73); Platelet Count 165 K/mm3 (150-400); RDW Coefficient Variation 13.9 % (11.7-14.2); RDW Standard Deviation 47.6 fL (35.1-46.3); Red Blood Cell Count 5.16 M/mm3 (3.80-5.20); White Blood Cell Count 8.96 K/mm3 (4.00-11.30)
[2023-04-02 06:16] LABS: Bun/Creatinine Ratio 28.3 (12.0-20.0); Calcium, Blood 8.9 mg/dL (8.5-10.1); Creatinine, Blood 0.46 mg/dL (0.40-1.00); Potassium, Blood 3.2 mmol/L (3.5-5.5)
[2023-04-02 07:24] VITALS: BP 155/99
--- NOTE | 2023-04-02 07:29 | NUR ---
patient awake all night trying to get oob. yelling out and hallucinating both visually and audibly. vest restraint placed for patient safety at 2030 so patient would not fall out of bed. patient pulled off tele twice before it was dc'd. Rhythm prior to that was SR/ST 90's to 100's. Call placed to hospitalist after previously ordered Haldol was given with no effect. Order for 10mg Geodon IM rec'd and given with no effect. No indication of pain or discomfort overnight.
[2023-04-02 16:01] VITALS: BP 138/96
--- NOTE | 2023-04-02 17:25 | NUR ---
PATIENT ALERT AND ORIENTED TO SELF ONLY. AWAKE ALL SHIFT HAVING AUDITORY AND VISUAL HALLUCINATIONS. FELIBERTO VEST RESTRAINT IN PLACE TO MAINTAIN SAFETY WELL A VIRTUAL RESOURCES REPRESENTATIVE. ANTIBIOTICS STARTED TO TREAT UTI AND NS INFUSING AT 75ML/HR. ATTEMPTED TO FEED PATIENT MEALS AND SHE REFUSED TO EAT. INCONTINENT OF BLADDER, WEARING ATTENDS. DENIES ANY PAIN. SKIN INTACT.
[2023-04-02 19:43] VITALS: BP 147/113
[2023-04-02 20:01] VITALS: BP 118/72
--- NOTE | 2023-04-03 03:42 | NUR ---
PT HAS VARIANCE IN BEHAVIOR THROUGHOUT SHIFT. FOR SEVERAL HOURS DURING FIRST HALF OF SHIFT PT WAS RELAXED, NOT PULLING AT RESTRAINTS, NOT BEHAVING IMPULSIVELY, AND FOLLOWING VERY SIMPLE COMMANDS. REMOVED RESTRAINTS AT ABOUT 2300 DUE TO PERCEIVED LACK OF NEED TO GUARANTEE SAFETY. WITHIN 20 MINUTES OF RESTRAINT REMOVAL PT WAS AGITATED, IMPULSIVE, ATTEMPTING OOB, IMPOSSIBLE TO REDIRECT, ETC. PUT RESTRAINTS BACK ON AT ABOUT 2330, WITHIN 1 HOUR WINDOW OF REMOVAL. PT CONTINUED TO PULL AT RESTRAINTS, BECOME INCREASINGLY AGITATED, AND GRAB AT IV POLE. ADMINISTERED PRN IM HALDOL AND WITHIN AN HOUR PT WAS RESTING COMFORTABLY. DOES NOT APPEAR TO BE SLEEPING COMPLETELY BUT IS NOW RELAXED IN BED. ORDER FOR RESTRAINT RENEWAL RECEIVED FROM DR. JONES AT 2145. DID NOT INPUT NEW ORDER SO CLICKING MACHINE OPERATORMAX MORELAND INPUT NEW ORDER FROM DR. VARGAS AT 0203 THIS MORNING. RESTRAINT DOCUMENTATION COMPLETED ON SCHEDULE THROUGHOUT SHIFT. NO NEW SKIN ABNORMALITIES OR CHANGE IN MENTATION NOTED BASED ON REPORT FROM DAY SHIFT. SATTING WELL ON ROOM AIR. BED IS LOCKED IN LOWEST POSITION. REMOTE MONITORING CAMERA IN PLACE. CALL LIGHT LEFT WITHIN REACH ALTHOUGH PT DOES NOT USE CALL LIGHT.
[2023-04-03 04:16] VITALS: BP 155/92
[2023-04-03 07:06] VITALS: BP 151/77
[2023-04-03 15:08] VITALS: BP 108/71
--- NOTE | 2023-04-03 18:08 | NUR ---
PATIENT MORE RESTFUL THIS SHIFT. WOKE FOR LUNCH AND ATE ABOUT 30%. IV FLUIDS D/C'D. CONTINUES ON ROCEPHIN TO TREAT UTI. VSS, ON RA. BREATHING TREATMENTS PRN. FELIBERTO VEST AND VIRTUAL SUPERVISOR TRAVEL TRAILER TO MAINTAIN SAFETY. DENIES ANY PAIN. A/O TO SELF ONLY. SPOKE WITH JOSE CARLOS FROM PALLIATIVE CARE AND SHE WILL BE BY TOMORROW TO SPEAK WITH PATIENT.
[2023-04-03 19:08] VITALS: BP 81/52
[2023-04-03 19:11] VITALS: BP 114/61
--- NOTE | 2023-04-04 01:03 | NUR ---
PT AWOKE AT ABOUT 0040 REQUESTING TO USE RESTROOM. TRANSFERRED TO RESTROOM VIA 1 PERSON ASSIST WITH GAIT BELT AND WALKER. SOMEWHAT ORIENTED ALTHOUGH DIFFICULT TO COMPLETELY ASSESS SHE REFUSES TO ANSWER QUESTIONS DUE TO AGITATION. APPEARS TO UNDERSTANDS QUESTIONS AND COMMANDS. VERY AGITATED. REMOVED RESTRAINTS UPON EXPLAINING CONDITIONS OF NOT HAVING RESTRAINTS IN PLACE. PT APPEARED TO UNDERSTAND NEED TO STAY IN BED AND CALL FOR HELP SHE NEEDS IT BUT DIFFICULT TO TELL FOR SURE SHE IGNORES ALL QUESTIONS/DIRECTIONS WHEN AGITATED. WILL CONTINUE TO MONITOR.
[2023-04-04 03:32] VITALS: BP 123/69
--- NOTE | 2023-04-04 04:20 | NUR ---
PT SLEPT FOR FIRST HALF OF SHIFT. AWOKE THIS MORNING WANTING TO GO TO RESTROOM. 1 PERSON ASSIST TO BATHROOM WITH GAIT BELT AND WALKER. REFUSED TO GO BACK TO BED AND BECAME VERY AGITATED AND ESCALATED UPON BEING TOLD THAT SHE COULD NOT GO GET COFFEE FOR HERSELF. SINCE BEING PUT BACK INTO BED, PT HAS BEEN AWAKE IN BED. PROVIDED WITH WATER AND PUDDING WHICH SHE ATE. ONLY SPORADICALLY IMPULSIVE NOW. REMAINS AGITATED, DIFFICULT TO REDIRECT, RUDE WITH STAFF. SEEMS SOMEWHAT ORIENTED BUT DOES NOT ANSWER QUESTIONS DUE TO FRUSTRATIONS. CLEARLY ABLE TO UNDERSTAND DIRECTIONS AND QUESTIONS EVEN IF SHE DOES NOT RESPOND APPROPRIATELY. VERY [place]. BED REMAINS LOCKED IN LOWEST POSITION. CALL LIGHT LEFT WITHIN REACH WHICH SHE HAS USED APPROPRIATELY ONE TIME.
[2023-04-04 07:07] LABS: Bun/Creatinine Ratio 32.2 (12.0-20.0); Calcium, Blood 8.6 mg/dL (8.5-10.1); Creatinine, Blood 0.47 mg/dL (0.40-1.00); Potassium, Blood 3.4 mmol/L (3.5-5.5)
[2023-04-04 07:52] VITALS: BP 136/75
--- NOTE | 2023-04-04 14:23 | NUR ---
Met with pt this am, she is extremely [place], but she was able to understand when I spoke slowly and at increased volume. She expressed discouragement; states she has "No idea what's going on", but when I told her she is at [facility], she states she believes it, but verbalizes feeling confused. I assured her I would keep her updated, and asked if I could call her brother and/or nephew. She was agreeable to this. Attempted to reach her nephew, but the phone number is outdated. The man who answered stated it isn't Apolinar's number any longer, but he continues to recieve calls on it from multiple places in [place]. Attempted to call her brother Rojas, reached a generic voicemail. I identified myself, and requested Rojas return my call if this is his number. Will also attempt to gather more information from the facility where pt came from in [place]. Pt has denied knowing any phone numbers for Apolinar or Rojas.
--- NOTE | 2023-04-04 16:31 | NUR ---
Pt's friend Shawna stopped by today to see her, and states she lives across the null from her. The pt's face lit up when she saw her, and they conversed for an hour or so. Although pt is [place], she was able to understand Shawna very well. Both Shawna and pt report that Shawna helps pt often with shopping, ADL's, cleaning, etc. With Shawna's help, we had a conversation regarding code status. The pt made it clear she would not want to be resucitated in the event her heart stopped. However, she would return to the hospital for antibiotics or other treatment. She did state she would never want to be placed on life support, no advanced airway interventions. We reviewed, filled out POLST and she signed it, will get signed by Dr. Cullen in the am. Code status changed to DNR.
[2023-04-04 16:59] VITALS: BP 95/66
[2023-04-04 17:04] VITALS: BP 105/71
--- NOTE | 2023-04-04 17:22 | NUR ---
DAYSHIFT SUMMARY Patient tired, slept t/o the day. CONCILIATOR evaluated patient this morning & ordered 1:1 feeding, for safety. Patient got OOB & worked with PT/OT, sat in the chair all afternoon. Pleasant & cooperative, did not try to get out of the chair. Patient able to feed self, but 1:1 for safety. Removed mily vest at 1600. Vitals stable, BP soft. Continuing IV ABX, will continue plan of care.
[2023-04-04 19:25] VITALS: BP 121/74
[2023-04-05 02:31] VITALS: BP 141/78
--- NOTE | 2023-04-05 03:52 | NUR ---
PT HAS BEEN SLEEPING THROUGHOUT SHIFT. WAS AWAKE IN CHAIR UPON SHIFT CHANGE. WAS FOLLOWING DIRECTIONS AND SPORADICALLY ANSWERING QUESTIONS BUT WAS DIFFICULT TO ASSESS ORIENTATION SHE WOULD IGNORE MOST OF MY QUESTIONS. DESPITE THIS, IS ABLE TO MAKE NEEDS KNOWN. MOSTLY COOPERATIVE WITH CARE BUT CAN BE VERY EASILY IRRITABLE WHEN NOT ALLOWED TO DO WHAT SHE WANTS TO DO OR WHEN SHE FEELS LIKE SHE IS BEING "BABIED". OVERALL, PT MENATION HAS IMPROVED GRADUALLY EVERY NIGHT SINCE SUNDAY NIGHT. APPEARS TO BE MOSTLY ORIENTED AT THIS POINT EVEN IF IT IS DIFFICULT TO TELL FOR SURE DUE TO HER AGITATION AND IGNORING MY QUESTIONS. STEADY 1-PERSON ASSIST WITH WALKER FROM CHAIR TO BED. BED LOCKED IN LOWEST POSITION. REMOTE MONITORING IN PLACE. CALL LIGHT LEFT WITHIN REACH.
[2023-04-05 07:15] VITALS: BP 136/87
[2023-04-05 15:12] VITALS: BP 101/64
--- NOTE | 2023-04-05 17:54 | NUR ---
SHIFT SUMMARY: Pt awake and alert X2-3 today. Unsure of date. [place]. Up to chair with one person ast for 5 hours. Ambulated in null with RW and PT. Able to feed self mech soft diet. Incontinent of urine at times. C/o headache and received order for Motrin. Bed locked, pt able to demonstrate use of call light when needed. Avasure monitor in place.
--- NOTE | 2023-04-05 18:08 | NUR ---
THIS ELECTRICAL ACCESSORIES II ASSEMBLER HAS REVIEWED AND AGREES WITH ALL NOTES AND ASSESSMENTS BY MAX LIRA.
[2023-04-05 20:03] VITALS: BP 115/69
[2023-04-06 02:59] VITALS: BP 130/72
[2023-04-06 05:05] LABS: BASOPHILS ABSOLUTE AUTO 0.02 K/mm3 (0.00-0.23); BASOPHILS PERCENT AUTO 0 % (0-2); EOSINOPHILS ABSOLUTE AUTO 0.09 K/mm3 (0.00-0.68); EOSINOPHILS PERCENT AUTO 1 % (0-6); Hematocrit 42.4 % (33.0-51.0); Hemoglobin 13.8 g/dL (11.5-16.0); IMMATURE GRAN ABSOLUTE AUTO 0.03 K/mm3 (0.00-0.10); IMMATURE GRAN PERCENT AUTO 0 % (0-1); LYMPHOCYTES ABSOLUTE AUTO 0.84 K/mm3 (0.84-5.20); LYMPHOCYTES PERCENT AUTO 9 % (21-46); MONOCYTES PERCENT AUTO 16 % (4-13); Mean Corpuscular HGB 30.8 pg (26.0-34.0); Mean Corpuscular HGB Conc 32.5 g/dL (31.5-36.5); Mean Corpuscular Volume 95 fL (80-100); Mean Platelet Volume 11.3 fL (9.1-12.4); NEUTROPHILS ABSOLUTE AUTO 6.54 K/mm3 (1.96-9.15); NEUTROPHILS PERCENT AUTO 73 % (41-73); Platelet Count 157 K/mm3 (150-400); RDW Coefficient Variation 13.9 % (11.7-14.2); RDW Standard Deviation 48.7 fL (35.1-46.3); Red Blood Cell Count 4.48 M/mm3 (3.80-5.20); White Blood Cell Count 8.92 K/mm3 (4.00-11.30)
[2023-04-06 05:22] LABS: Bun/Creatinine Ratio 28.9 (12.0-20.0); Calcium, Blood 8.6 mg/dL (8.5-10.1); Creatinine, Blood 0.49 mg/dL (0.40-1.00); Potassium, Blood 4.2 mmol/L (3.5-5.5)
--- NOTE | 2023-04-06 06:02 | NUR ---
ORIENTATION IS IMPROVING, PATIENT WAS NOT IMPULSIVE. PT PLEASANT, COOPERATIVE. VSS, AO, MAKES NEEDS KNOWN, X1 ASSIST TO TOILET, AVASURE IN PLACE DUE TO RECENT CONFUSION/IMPULSIVENESS. UNEVENTFUL NIGHT.
[2023-04-06 07:34] VITALS: BP 106/67
[2023-04-06 15:11] VITALS: BP 111/61
--- NOTE | 2023-04-06 16:30 | NUR ---
SHIFT SUMMARY: Pt remains A&O X3 this shift. [place]. Able to communicate needs. Ambulating with walker and 1 person ast. Lung sounds with exp wheeze and fine crackles. RT providing nebulizer tx. Pt feeds self, average appetite. Dysphagia precautions still in place. No difficulties noted or verbalized. Motrin effective for headache. Pt sitting up in chair this pm. Call light in reach. No further needs id or verbalized at this time. Will continue to monitor this shift.
--- NOTE | 2023-04-06 17:31 | NUR ---
THIS RING STRIKER HAS REVIEWED AND AGREES WITH ALL NOTES AND ASSESSMENTS BY MAX LIRA.
[2023-04-06 20:30] VITALS: BP 110/72
[2023-04-07 05:59] VITALS: BP 143/108
[2023-04-07 06:07] VITALS: BP 149/94
[2023-04-07 07:15] VITALS: BP 101/70
[2023-04-07 15:03] VITALS: BP 124/77
--- NOTE | 2023-04-07 18:23 | NUR ---
SUMMARY- PT AAOX3-4 THIS SHIFT. CALLS APPROPRIATELY. PT WALKING IN THE HALLS WITH PT TODAY AND TO THE BATHROOM WITH STAFF. SBA.
[2023-04-07 19:27] VITALS: BP 108/78
[2023-04-08] MEDS ORDERED: ESTRADIOL42.5 GM VAG (04:28)
--- NOTE | 2023-04-08 06:19 | NUR ---
UNEVENTFUL NIGHT. SBA TO TOILET WITH SOME INCONTINENT VOIDING. AO, PLEASANT, VSS, [place] BUT MAKES NEEDS KNOWN AND COOPERATIVE.
[2023-04-08 07:21] VITALS: BP 102/65
[2023-04-08 15:33] VITALS: BP 100/67
--- NOTE | 2023-04-08 18:17 | NUR ---
SUMMARY- NO ACUTE EVENTS THIS SHIFT. SBA. AAOX4. CALM AND COOPERATIVE. PT AT NEW BASELINE.
[2023-04-08 19:22] VITALS: BP 113/64
--- NOTE | 2023-04-09 05:55 | NUR ---
NO SIGNIFICANT CHANGES LAST NIGHT. PT IS AO, SBA ASSIST WITH WALKER, PLEASANT, DENIES PAIN, VSS, INCONTINENT OF URINE. SHOWERED THIS MORNING TO PREP FOR POSSIBLE DC.
[2023-04-09 07:30] VITALS: BP 104/78
[2023-04-09 15:36] VITALS: BP 105/64
--- NOTE | 2023-04-09 17:35 | NUR ---
SUMMARY- NO ACUTE EVENTS THIS SHIFT. PT IS SBA. AAOX4. PT IS AT THE NEW BASELINE.
[2023-04-09 19:24] VITALS: BP 122/68
--- NOTE | 2023-04-10 04:37 | NUR ---
SHIFT SUMMARY: A&O X 3, ABLE TO MAKE NEEDS KNOWN. NO COMPLAINT OF CHEST PAIN OR DISCOMFORT. RESPIRATIONS EVEN UNLABORED NO COUGH. BOWEL TONES HYPOACTIVE ALL 4 QUADRANTS. MEDS CRUSHED APPLESAUCE. SLEPT WELL THIS NIGHT, WOKE 1 TIME AND SAT EDGE OF BED. DISCHARGE ON HOLD FOR RESOURCES IN THE HOME. SBA 1 FOR ALL TRANSFERS WITH WALKER.
[2023-04-10 04:44] VITALS: BP 109/66
[2023-04-10 07:14] VITALS: BP 102/66
[2023-04-10 13:34] LABS: Bun/Creatinine Ratio 16.3 (12.0-20.0); Calcium, Blood 8.8 mg/dL (8.5-10.1); Creatinine, Blood 0.49 mg/dL (0.40-1.00); Potassium, Blood 4.8 mmol/L (3.5-5.5)
[2023-04-10] MEDS ORDERED: POTCHL20ER PO (14:41)
[2023-04-10] MEDS ORDERED: NICO21TP TOP (14:41)
--- NOTE | 2023-04-10 16:30 | NUR ---
PT DISCHARGED 1620 WITH DC INSTRUCTIONS. SENT HOME WITH BELONGINGS INCLUDING A PLASTIC CUP WITH ALL HER RINGS AND JEWFAUSTINOY- SAW 3 RINGS A PENDANT AND 2 NECKLACES. AWARE OF FOLLOW-UP VISITS, BUT STATES, "HOW AM I SUPPOSED TO DO A TELEPHONE VISIT IF I CANT EVEN HEAR". WHEELCHAIR TRANSPORT WHEELED PT WITH HER BELONGINGS INCLUDING HER CLOTHS AND PINK ROBE, BACK TO HER FACILITY AT [facility].
== END 2023-04-10 16:15 | disposition home health service (06) | DRG 689 ==
LOC: ER 12:23 → MEDS 20:01 → PCU 20:01 → MEDS 03-31 18:11
PROVIDERS: Emergency Medicine; Internal Medicine; ADMIT Hospitalist
PROC: 4A033R1 Measurement of Arterial Saturation, Peripheral, Percutaneous Approach (ICD-10-PCS; principal; 2023-03-29)
DX: N39.0 Urinary tract infection, site not specified (principal); G93.41 Metabolic encephalopathy; E87.3 Alkalosis; J44.1 Chronic obstructive pulmonary disease with (acute) exacerbation; J96.12 Chronic respiratory failure with hypercapnia; J96.11 Chronic respiratory failure with hypoxia; G93.1 Anoxic brain damage, not elsewhere classified; E87.6 Hypokalemia; B96.20 Unspecified Escherichia coli [E. coli] as the cause of diseases classified elsewhere; B95.5 Unspecified streptococcus as the cause of diseases classified elsewhere; Z20.822 Contact with and (suspected) exposure to COVID-19; F17.210 Nicotine dependence, cigarettes, uncomplicated; M16.12 Unilateral primary osteoarthritis, left hip; E86.9 Volume depletion, unspecified; Z96.641 Presence of right artificial hip joint; Z98.890 Other specified postprocedural states; Z98.51 Tubal ligation status; Z88.8 Allergy status to other drugs, medicaments and biological substances; Z88.5 Allergy status to narcotic agent; Z88.0 Allergy status to penicillin; Z79.899 Other long term (current) drug therapy; Z46.6 Encounter for fitting and adjustment of urinary device; Z88.1 Allergy status to other antibiotic agents; Z78.1 Physical restraint status
CPT/HCPCS: 0202U; 36415; 36600; 51701; 70450; 71045; 72170; 80048; 80053; 81001; 82140; 82436; 82550; 82803; 83605; 83735; 83880; 84100; 84145; 84300; 84484; 85025; 85610; 85730; 87040; 87077; 87086; 87186; 92526; 92610; 93005; 93010; 94640; 94664; 94760; 94762; 96365-59; 96366-59; 96372-59; 96375-59; 97110; 97116; 97162; 97166; 97530; 97535; 99285-25; A9270; G0480; J0696; J1630; J1650; J1956; J2060; J2930; J3480; J3486; J7030; J7050; J7120

== ENCOUNTER 2023-07-08 18:28 | Emergency (ER) | payer OTHER ==
[~2023-07-08] VITALS: Ht 162.6 cm; Wt 86.2 kg
[~2023-07-08 18:28] MED LIST changes: +NICO21TP TOP; +POTCHL20ER PO
[2023-07-08 18:56] LABS: BASOPHILS ABSOLUTE AUTO 0.01 K/mm3 (0.00-0.23); BASOPHILS PERCENT AUTO 0 % (0-2); EOSINOPHILS ABSOLUTE AUTO 0.02 K/mm3 (0.00-0.68); EOSINOPHILS PERCENT AUTO 0 % (0-6); Hematocrit 46.4 % (33.0-51.0); Hemoglobin 15.1 g/dL (11.5-16.0); IMMATURE GRAN ABSOLUTE AUTO 0.01 K/mm3 (0.00-0.10); IMMATURE GRAN PERCENT AUTO 0 % (0-1); LYMPHOCYTES ABSOLUTE AUTO 1.62 K/mm3 (0.84-5.20); LYMPHOCYTES PERCENT AUTO 26 % (21-46); MONOCYTES ABSOLUTE AUTO 0.62 K/mm3 (0.16-1.47); MONOCYTES PERCENT AUTO 10 % (4-13); Mean Corpuscular HGB 30.9 pg (26.0-34.0); Mean Corpuscular HGB Conc 32.5 g/dL (31.5-36.5); Mean Corpuscular Volume 95 fL (80-100); Mean Platelet Volume 10.4 fL (9.1-12.4); NEUTROPHILS ABSOLUTE AUTO 3.87 K/mm3 (1.96-9.15); NEUTROPHILS PERCENT AUTO 63 % (41-73); Platelet Count 166 K/mm3 (150-400); RDW Coefficient Variation 13.7 % (11.7-14.2); RDW Standard Deviation 48.3 fL (35.1-46.3); Red Blood Cell Count 4.88 M/mm3 (3.80-5.20); White Blood Cell Count 6.15 K/mm3 (4.00-11.30)
[2023-07-08 19:22] LABS: Albumin, Blood 3.9 g/dL (3.4-5.0); Bilirubin, Total 0.8 mg/dL (0.1-1.0); Bun/Creatinine Ratio 32.1 (12.0-20.0); Calcium, Blood 9.8 mg/dL (8.5-10.1); Creatinine, Blood 0.5 mg/dL (0.40-1.00); Globulin, Blood 4.1 g/dL (2.2-4.0)
[2023-07-08 21:24] LABS: Source, Urine Voided
[2023-07-08 21:39] LABS: Appearance, Urine Cloudy (Clear); Bilirubin, Urine Neg (Neg); Blood, Urine 1+ (Neg); Color, Urine Yellow (P-Yellow); Glucose Qualitative, Urine Neg (Neg); Ketones, Urine Neg (Neg); Leukocyte Esterase, Urine 3+ (Neg); Nitrite, Urine Neg (Neg); Protein, Urine 1+ (Neg); Urobilinogen, Urine NORM (Normal)
[2023-07-08 21:54] LABS: Amorphous Light (0-Heavy); Bacteria Few /hpf; Red Blood Cells, Urine 0-2 /hpf (0-2); Squamous Epithelial Cells Few /hpf (Few); Triple Phosphate Crystals Few /hpf
[2023-07-09 03:00] VITALS: BP 143/77
== END 2023-07-09 05:12 | disposition home or self-care (01) ==
LOC: ER 18:28
PROVIDERS: Emergency Medicine
DX: R56.9 Unspecified convulsions (principal); Z76.89 Persons encountering health services in other specified circumstances; F17.210 Nicotine dependence, cigarettes, uncomplicated; J44.9 Chronic obstructive pulmonary disease, unspecified; Z88.0 Allergy status to penicillin; Z88.1 Allergy status to other antibiotic agents; Z88.6 Allergy status to analgesic agent; Z88.8 Allergy status to other drugs, medicaments and biological substances
CPT/HCPCS: 70450; 71046; 80053; 81001; 83690; 85025; 85379; 87086; 93005; 93010; 99285-25

== ENCOUNTER 2023-12-24 13:18 | Emergency (ER) | payer OTHER ==
[~2023-12-24] VITALS: Ht 157.5 cm; Wt 63.5 kg
[2023-12-24 14:11] LABS: BASOPHILS ABSOLUTE AUTO 0.02 K/mm3 (0.00-0.23); BASOPHILS PERCENT AUTO 0 % (0-2); EOSINOPHILS PERCENT AUTO 0 % (0-6); Hematocrit 43.7 % (33.0-51.0); Hemoglobin 14.2 g/dL (11.5-16.0); IMMATURE GRAN ABSOLUTE AUTO 0.02 K/mm3 (0.00-0.10); IMMATURE GRAN PERCENT AUTO 0 % (0-1); LYMPHOCYTES ABSOLUTE AUTO 0.41 K/mm3 (0.84-5.20); LYMPHOCYTES PERCENT AUTO 8 % (21-46); MONOCYTES ABSOLUTE AUTO 0.33 K/mm3 (0.16-1.47); MONOCYTES PERCENT AUTO 7 % (4-13); Mean Corpuscular HGB 31.9 pg (26.0-34.0); Mean Corpuscular HGB Conc 32.5 g/dL (31.5-36.5); Mean Corpuscular Volume 98 fL (80-100); Mean Platelet Volume 10.7 fL (9.1-12.4); NEUTROPHILS PERCENT AUTO 84 % (41-73); Platelet Count 164 K/mm3 (150-400); RDW Coefficient Variation 13.2 % (11.7-14.2); RDW Standard Deviation 47.4 fL (35.1-46.3); Red Blood Cell Count 4.45 M/mm3 (3.80-5.20); White Blood Cell Count 4.88 K/mm3 (4.00-11.30)
[2023-12-24 14:32] LABS: Albumin, Blood 3.4 g/dL (3.4-5.0); Bilirubin, Total 0.5 mg/dL (0.1-1.0); Bun/Creatinine Ratio 38.4 (12.0-20.0); Calcium, Blood 9.2 mg/dL (8.5-10.1); Creatinine, Blood 0.5 mg/dL (0.40-1.00); Globulin, Blood 3.5 g/dL (2.2-4.0); Potassium, Blood 4.6 mmol/L (3.5-5.5); Total Protein, Blood 6.9 g/dL (6.4-8.2)
[2023-12-24] MEDS ORDERED: RX Prepack Albuterol 1 PREPACK/6.7 GM INH UD ONE (16:40)
[2023-12-24] MEDS ORDERED: DULERA 100 MCG-13 GM INH (16:47)
[2023-12-24] MEDS ORDERED: LEVALBUTEROL TA15 G1 INH (16:47)
[2023-12-24 17:15] VITALS: BP 137/85
== END 2023-12-24 17:30 | disposition home or self-care (01) ==
LOC: ER 13:18
PROVIDERS: Emergency Medicine
DX: R55 Syncope and collapse (principal); J44.9 Chronic obstructive pulmonary disease, unspecified; Z88.0 Allergy status to penicillin; Z88.6 Allergy status to analgesic agent; Z88.1 Allergy status to other antibiotic agents; F17.210 Nicotine dependence, cigarettes, uncomplicated
CPT/HCPCS: 80053; 85025; 93005; 93010; 99284-25; A9270

== ENCOUNTER → 2024-07-21 | Outpatient (CLI) | payer MEDICARE, OTHER ==
[~2024-07-21] MED LIST changes: +DELTASONE20 MG PO; +DULERA 100 MCG-13 GM INH; +IPRAT-ALBUT 0.5-3 ML NEB; +LEVALBUTEROL TA15 G1 INH; +LEVFLO500 PO; +Nicoderm Cq1 EAC1 TOP; +PRED20 PO; +Prednisone10 MG PO
== END ==
LOC: LAB SHORT 13:02 → LAB 13:02
DX: R10.9 Unspecified abdominal pain (principal)
CPT/HCPCS: 87077; 87086; 87186

== ENCOUNTER → 2024-08-08 | Outpatient (CLI) | payer MEDICARE, OTHER ==
[2024-08-08 12:58] LABS: Source, Urine Voided
[2024-08-08 14:42] LABS: Appearance, Urine Hazy (Clear); Bilirubin, Urine Neg (Neg); Blood, Urine 3+ (Neg); Glucose Qualitative, Urine Neg (Neg); Ketones, Urine Neg (Neg); Leukocyte Esterase, Urine 2+ (Neg); Nitrite, Urine Neg (Neg); Protein, Urine Neg (Neg); Urobilinogen, Urine NORM (Normal); pH, Urine 6.5 (5.0-8.0)
[2024-08-08 15:16] LABS: Color, Urine Pale Yellow (P-Yellow)
[2024-08-08 15:17] LABS: Bacteria Mod /hpf; Mucus Light (0-Heavy); Red Blood Cells, Urine 0-2 /hpf (0-2); Squamous Epithelial Cells Rare /hpf (Few)
[2024-08-08 16:07] LABS: Bacterial Vaginosis PCR Negative (NEGATIVE); Candida glabrata-krusei, PCR NOT DETECTED (NOT DETECT)
[2024-08-08 16:14] LABS: Candida Group, PCR DETECTED (NOT DETECT)
== END ==
LOC: LAB SHORT 12:54 → LAB 12:54
PROVIDERS: Obstetrics & Gynecology
DX: N89.8 Other specified noninflammatory disorders of vagina (principal); Z46.89 Encounter for fitting and adjustment of other specified devices
CPT/HCPCS: 81001; 87086; 87481; 87661; 87801

== ENCOUNTER 2024-09-04 11:47 | Inpatient (IN) | payer MEDICARE, OTHER ==
[~2024-09-04] VITALS: Ht 157.5 cm; Wt 55.7 kg
[2024-09-04] MEDS ORDERED: KLOR-CON 1010 ME9 PO (12:29)
[2024-09-04] MEDS ORDERED: FURO20 PO (12:30)
[2024-09-04 12:37] LABS: BASOPHILS ABSOLUTE AUTO 0.01 K/mm3 (0.00-0.23); BASOPHILS PERCENT AUTO 0 % (0-2); EOSINOPHILS PERCENT AUTO 0 % (0-6); Hemoglobin 12.2 g/dL (11.5-16.0); IMMATURE GRAN ABSOLUTE AUTO 0.02 K/mm3 (0.00-0.10); IMMATURE GRAN PERCENT AUTO 0 % (0-1); LYMPHOCYTES ABSOLUTE AUTO 0.63 K/mm3 (0.84-5.20); LYMPHOCYTES PERCENT AUTO 7 % (21-46); MONOCYTES ABSOLUTE AUTO 0.57 K/mm3 (0.16-1.47); MONOCYTES PERCENT AUTO 6 % (4-13); Mean Corpuscular HGB 31.2 pg (26.0-34.0); Mean Corpuscular HGB Conc 31.3 g/dL (31.5-36.5); Mean Corpuscular Volume 100 fL (80-100); Mean Platelet Volume 10.6 fL (9.1-12.4); NEUTROPHILS ABSOLUTE AUTO 7.74 K/mm3 (1.96-9.15); NEUTROPHILS PERCENT AUTO 86 % (41-73); Platelet Count 150 K/mm3 (150-400); RDW Coefficient Variation 13.6 % (11.7-14.2); RDW Standard Deviation 49.8 fL (35.1-46.3); Red Blood Cell Count 3.91 M/mm3 (3.80-5.20); White Blood Cell Count 8.97 K/mm3 (4.00-11.30)
[2024-09-04 13:04] LABS: Albumin, Blood 3.1 g/dL (3.4-5.0); Albumin/Globulin Ratio 0.9 (0.8-1.8); Bilirubin, Total 0.7 mg/dL (0.1-1.0); Bun/Creatinine Ratio 21.1 (12.0-20.0); Calcium, Blood 8.8 mg/dL (8.5-10.1); Creatinine, Blood 0.52 mg/dL (0.40-1.00); Globulin, Blood 3.5 g/dL (2.2-4.0); Potassium, Blood 4.5 mmol/L (3.5-5.5); Total Protein, Blood 6.6 g/dL (6.4-8.2)
[2024-09-04 13:27] LABS: Source, Urine Straight Cath
[2024-09-04 13:36] LABS: Appearance, Urine Hazy (Clear); Bilirubin, Urine Neg (Neg); Blood, Urine 3+ (Neg); Color, Urine Yellow (P-Yellow); Glucose Qualitative, Urine Neg (Neg); Ketones, Urine Neg (Neg); Leukocyte Esterase, Urine Neg (Neg); Nitrite, Urine Neg (Neg); Protein, Urine 2+ (Neg); Urobilinogen, Urine NORM (Normal)
[2024-09-04 13:46] LABS: Bacteria Few /hpf; Squamous Epithelial Cells Few /hpf (Few)
[2024-09-04 13:47] LABS: Amorphous Heavy (0-Heavy)
[2024-09-04 15:14] LABS: Base Excess Venous 8.9 mmol/L; PCO2 Venous 59.4 mmHg (38-42); pH Blood Venous 7.37 (7.34-7.37)
[2024-09-04] MEDS ORDERED: Lactated Ringer's 1,000 ML IV SCH (15:35)
[2024-09-04] MEDS ORDERED: FLU VACC TS2024-25(6MOS UP)/PF 45 MCG/0.5 ML SYRINGE IM SCH (15:35)
[2024-09-04 17:20] LABS: Cholesterol 170 mg/dL (50-200); HDL Cholesterol 83 mg/dL (>39); LDL/HDL RATIO 0.9; Low Density Lipoprotein Chol 78 mg/dL (0-110); Triglycerides 47 mg/dL (30-160); Very Low Density Lipoprot Chol 9 mg/dL (6-32)
[2024-09-04 17:54] VITALS: BP 100/65
--- NOTE | 2024-09-04 19:23 | NUR ---
CALLED DR ALLAN AFTER THE PT ARRIVED FOR CONFIRMATION ABOUT THE PT CODE STATUS. POLST IS DNR. PER DR ALLAN THE PT IS DNR, FULL CODE WAS ORDERED. NEW ORDER RECIEVED FOR DNR.
[2024-09-04 19:37] VITALS: BP 100/60
--- NOTE | 2024-09-04 20:20 | NUR ---
SHIFT SUMMARY- PT ADMITTED AT 1800. SHE IS DEAF, WHEN STAFF SPEAK TO HER SHE SAYS "WHAT!? I CAN'T HEAR! WRITE IT DOWN!" WHEN STAFF WRITE THE ANSWER OR QUESTION DOWN, THE PT READS IT, THEN APPEARS TO FORGET SHE ASKED A QUESTION, LOOKS AT STAFF CONFUSED AND ASKES THE SAME QUESTION AGAIN. SHE IS RESISTENT TO CARE SHE HAS NO IDEA WHY SHE NEEDS IT. SHE WILL VOID AND 5 MINUTES LATER CALL BECAUSE SHE HASNT PEED IN HOURS. SHE READ A NOTE TELLING HER SHE IS IN THE HOSPITAL, AT THE TIME OF SHIFT CHANGE, SHE ANNOUNCED TO THE NIGHT RN THAT SHE WAS IN THE HOSPITAL. BEDSIDE REPORT COMPLETED WITH NIGHT RN, IV REDRESSED AND LR STARTED, IV IS TOO POSITIONAL TO RUN THE FLUIDS.
[2024-09-04] MEDS ORDERED: Haloperidol Lactate Inj. 5 MG/ML Injection IV PRN (20:50)
--- NOTE | 2024-09-05 00:47 | NUR ---
PT STARTED PULLING AT LINES AT BEGINNING OF SHIFT AND AGITATED. HOSPITALIST NOTIFIED AND ORDER FOR BL MITTS AND HALDOL IV OBTAINED.
[2024-09-05 04:08] VITALS: BP 127/73
--- NOTE | 2024-09-05 05:24 | NUR ---
SHIFT SUMMARY NOC PT A/O TO SELF. HIGHLY CONFUSED AND YELLING OUT AT BEGINNING OF SHIFT WELL PULLING AT LINES AND TUBING. PT HAS BILATERAL MITTS IN PLACE TO PROTECT LINES AND TUBING. BED ALARM ALSO ON FOR SAFETY. PT RECEIVED ONE DOSE IV HALDOL FOR AGITATION. PT CONFUSION HAS MILDLY DECREASED. PT HAS HAD VISUAL HALLUCINATIONS OF SEEING HER CAT IN ROOM. PT ON O2 3L/NC SPO2 >92%. ON TELE SINUS RHYTHM IN 90'S. PT HAS BEEN CONT/INCONTINENT OF URINE AND CAN USE BSC AT TIMES,PT HAD BM DURING SHIFT. LR INFUSING @ 100 ML/HR. PT CURRENTLY RESTING WITH BED IN LOWEST POSITION, AND CALL LIGHT WITHIN REACH.
[2024-09-05 06:42] LABS: BASOPHILS ABSOLUTE AUTO 0.01 K/mm3 (0.00-0.23); BASOPHILS PERCENT AUTO 0 % (0-2); EOSINOPHILS ABSOLUTE AUTO 0.01 K/mm3 (0.00-0.68); EOSINOPHILS PERCENT AUTO 0 % (0-6); Hemoglobin 10.6 g/dL (11.5-16.0); IMMATURE GRAN ABSOLUTE AUTO 0.02 K/mm3 (0.00-0.10); IMMATURE GRAN PERCENT AUTO 0 % (0-1); LYMPHOCYTES ABSOLUTE AUTO 0.69 K/mm3 (0.84-5.20); LYMPHOCYTES PERCENT AUTO 12 % (21-46); MONOCYTES ABSOLUTE AUTO 0.66 K/mm3 (0.16-1.47); MONOCYTES PERCENT AUTO 12 % (4-13); Mean Corpuscular HGB 31.7 pg (26.0-34.0); Mean Corpuscular HGB Conc 32.1 g/dL (31.5-36.5); Mean Corpuscular Volume 99 fL (80-100); Mean Platelet Volume 10.9 fL (9.1-12.4); NEUTROPHILS ABSOLUTE AUTO 4.37 K/mm3 (1.96-9.15); NEUTROPHILS PERCENT AUTO 76 % (41-73); Platelet Count 125 K/mm3 (150-400); RDW Coefficient Variation 13.8 % (11.7-14.2); RDW Standard Deviation 50.4 fL (35.1-46.3); Red Blood Cell Count 3.34 M/mm3 (3.80-5.20); White Blood Cell Count 5.76 K/mm3 (4.00-11.30)
[2024-09-05 06:59] LABS: Bun/Creatinine Ratio 26.5 (12.0-20.0); Calcium, Blood 8.9 mg/dL (8.5-10.1); Creatinine, Blood 0.45 mg/dL (0.40-1.00); Potassium, Blood 3.7 mmol/L (3.5-5.5)
--- NOTE | 2024-09-05 08:58 | NUR ---
PATIENT UP WALKING FWW WITH PT AND LYN MASCORRO ON MY ARRIVAL. SHE IS NOW LAYING IN BED QUIETLY. SHE IS ABLE TO STATE HER NAME, BIRTHDATE, DAY OF MONTH, AND LOCATION OF [facility]. WHEN ASKED WHY SHE IS HERE SHE STATES "BECAUSE I WAS SICK". SHE IS VERY HARD OF HEARING. SHE IS ALSO STATING "I DONT TAKE ANY MEDICATIONS AT ALL". CURRENTLY ON ROOM AIR RESTING WITH O2 SATS ABOVE 92%. SHE STATES SHE DOES NOT USE OXYGEN ALL THE TIME, JUST WHEN SHE FEELS SHE NEEDS IT.
[2024-09-05] MEDS ORDERED: Enoxaparin 40 MG/0.4 ML SYR SC SCH (09:00)
[2024-09-05 09:27] VITALS: BP 114/69
[2024-09-05 14:56] VITALS: BP 118/66
--- NOTE | 2024-09-05 17:25 | NUR ---
SHIFT SUMMARY NON VIOLENT RESTRAINTS REMOVED AT 0830 THIS AM AND THEN 1:1 SITTER WAS INITIATED AND D/C THIS AFTERNOON. PT A&O TO SELF AT THE BEGINNING OF SHIFT AND BEGAN TO BE A&OX2-3 T/O SHIFT. PT VSS, REFUSED O2, CONT/INCONT AT TIMES, AMB W/ 1P ASSIST, TOLERATING PO, VOIDING, AND DENIED PAIN. NO CVA DEFICITS NOTED, CT NEG, AND REFUSED MRI. PT HAD ECHO AND WORKED W/ PHYSICAL THERAPY. PT REMAINS TO BE FORGETFUL AND IMPULSIVE AT TIMES. BED ALARM ON FOR SAFETY. CALL LIGHT WITHIN REACH.
[2024-09-05 19:26] VITALS: BP 144/92
[2024-09-06 02:19] VITALS: BP 155/91
--- NOTE | 2024-09-06 05:45 | NUR ---
SHIFT SUMMARY PT IS ALERT AND ORIENTED TIMES 3. PT IS ABLE TO USE BEDSIDE COMMODE WITH ONE PERSON ASSIST AND WALKER PT. ABLE TO MAKE NEEDS KNOWN, IS ON ROOM AIR BUT STATES AT HOME SHE IS ON O2. PT HAS A WOUND ON COCCYX AND BANDAGED WITH MEPILEX. PT HAS POWERGLIDE IN LEFT UPPER ARM AND TAKES MEDS WHOLE IN WATER. . PT APPEARED TO WATCH TV THROUGH OUT THE NIGHT AND TALK TO UNSEEN OTHERS. PT HAS BED ALARM AND +2 BILATERAL EDEMA ON LOWER EXTREMITIES. BED IN LOW POSITION, CALL LIGHT WITHIN REACH, RAILS TIMES 2.
[2024-09-06 07:56] VITALS: BP 155/99
[2024-09-06] MEDS ORDERED: ASPI81CH PO (10:47)
[2024-09-06] MEDS ORDERED: OMEP20ER PO (10:47)
--- NOTE | 2024-09-06 11:26 | NUR ---
DISCHARGE NOTE PT DISCHARGED HOME AT 1105. PT AND FAMILY PROVIDED W/ VERBAL AND WRITTEN INSTRUCTIONS AND REPORTED UNDERSTANDING. PT A&OX3, VSS, AMB W/ ASSIST, TOLERATING PO, VOIDING, AND DENIED PAIN. BELONGINGS WERE RETURNED. THIS NURSE ASKED PT IF DECORATIVE PILLOW ON THE BED BELONGED TO HER AND SHE STATED THAT IT WAS NOT HERS. THIS NURSE ESCOURTED PT OUT VIA W/C TO THE PT ENTRANCE.
== END 2024-09-06 11:17 | disposition home health service (06) | DRG 641 ==
LOC: ER 11:47 → MEDS 15:31 → ER 17:44 → MEDS 17:52 → ENPENDDIS 09-06 10:14 → MEDS 09-06 11:17
PROVIDERS: Emergency Medicine; ADMIT Family Medicine
DX: E86.0 Dehydration (principal); J96.11 Chronic respiratory failure with hypoxia; J96.12 Chronic respiratory failure with hypercapnia; J44.9 Chronic obstructive pulmonary disease, unspecified; Z66 Do not resuscitate; F17.210 Nicotine dependence, cigarettes, uncomplicated; I87.2 Venous insufficiency (chronic) (peripheral); H91.90 Unspecified hearing loss, unspecified ear; I50.9 Heart failure, unspecified; Z96.641 Presence of right artificial hip joint; Z88.0 Allergy status to penicillin; Z88.1 Allergy status to other antibiotic agents; Z88.8 Allergy status to other drugs, medicaments and biological substances; Z99.81 Dependence on supplemental oxygen; Z88.6 Allergy status to analgesic agent; Z79.899 Other long term (current) drug therapy
CPT/HCPCS: 36415; 70450; 71045; 80048; 80053; 80061; 81001; 82140; 82803; 83605; 85025; 87040; 92610; 93005; 93010; 93306; 93880; 97110; 97116; 97161; 97165; 97530; 99285-25; C1751; J1630; J7120

== ENCOUNTER 2024-09-08 10:04 | Emergency (ER) | payer MEDICARE ==
[~2024-09-08] VITALS: Ht 160 cm; Wt 45.4 kg
[~2024-09-08 10:04] MED LIST changes: +ASPI81CH PO; +FURO20 PO; +KLOR-CON 1010 ME9 PO; +OMEP20ER PO
[2024-09-08 10:57] LABS: BASOPHILS ABSOLUTE AUTO 0.02 K/mm3 (0.00-0.23); BASOPHILS PERCENT AUTO 0 % (0-2); EOSINOPHILS ABSOLUTE AUTO 0.01 K/mm3 (0.00-0.68); EOSINOPHILS PERCENT AUTO 0 % (0-6); Hematocrit 39.4 % (33.0-51.0); IMMATURE GRAN ABSOLUTE AUTO 0.01 K/mm3 (0.00-0.10); IMMATURE GRAN PERCENT AUTO 0 % (0-1); LYMPHOCYTES ABSOLUTE AUTO 1.12 K/mm3 (0.84-5.20); LYMPHOCYTES PERCENT AUTO 24 % (21-46); MONOCYTES ABSOLUTE AUTO 0.67 K/mm3 (0.16-1.47); MONOCYTES PERCENT AUTO 15 % (4-13); Mean Corpuscular HGB 31.6 pg (26.0-34.0); Mean Corpuscular Volume 96 fL (80-100); Mean Platelet Volume 11.2 fL (9.1-12.4); NEUTROPHILS ABSOLUTE AUTO 2.78 K/mm3 (1.96-9.15); NEUTROPHILS PERCENT AUTO 60 % (41-73); Platelet Count 133 K/mm3 (150-400); RDW Coefficient Variation 14.1 % (11.7-14.2); RDW Standard Deviation 50.1 fL (35.1-46.3); Red Blood Cell Count 4.11 M/mm3 (3.80-5.20); White Blood Cell Count 4.61 K/mm3 (4.00-11.30)
[2024-09-08 11:22] LABS: Albumin, Blood 3.5 g/dL (3.4-5.0); Bilirubin, Total 1.1 mg/dL (0.1-1.0); Bun/Creatinine Ratio 41.3 (12.0-20.0); Calcium, Blood 9.2 mg/dL (8.5-10.1); Creatinine, Blood 0.48 mg/dL (0.40-1.00); Globulin, Blood 3.5 g/dL (2.2-4.0); Potassium, Blood 3.7 mmol/L (3.5-5.5); Thyroid Stimulating Hormone 1.24 uIU/mL (0.360-4.800)
[2024-09-08 13:00] VITALS: BP 142/88
[2024-09-08 13:16] LABS: Source, Urine Straight Cath
[2024-09-08 13:47] LABS: Appearance, Urine Clear (Clear); Bilirubin, Urine Neg (Neg); Blood, Urine 3+ (Neg); Color, Urine Yellow (P-Yellow); Glucose Qualitative, Urine Neg (Neg); Ketones, Urine 3+ (Neg); Leukocyte Esterase, Urine 1+ (Neg); Nitrite, Urine Neg (Neg); Protein, Urine 2+ (Neg); Specific Gravity, Urine 1.015 (1.003-1.022); Urobilinogen, Urine 1+ (Normal)
[2024-09-08 14:12] LABS: Bacteria Many /hpf; Squamous Epithelial Cells Few /hpf (Few)
[2024-09-08] MEDS ORDERED: CEPH500 PO (15:27)
== END 2024-09-08 16:15 | disposition home or self-care (01) ==
LOC: ER 10:04
PROVIDERS: Emergency Medicine
DX: G98.8 Other disorders of nervous system (principal); N39.0 Urinary tract infection, site not specified; J44.9 Chronic obstructive pulmonary disease, unspecified; I50.9 Heart failure, unspecified; F17.210 Nicotine dependence, cigarettes, uncomplicated; Z88.0 Allergy status to penicillin; Z88.6 Allergy status to analgesic agent; Z88.1 Allergy status to other antibiotic agents; Z88.8 Allergy status to other drugs, medicaments and biological substances; Z79.82 Long term (current) use of aspirin; Z79.899 Other long term (current) drug therapy; Z96.641 Presence of right artificial hip joint
CPT/HCPCS: 70450; 80053; 81001; 84443; 85025; 87086; 99285-25

== ENCOUNTER 2025-03-20 17:04 | Inpatient (IN) | payer MEDICARE ==
[~2025-03-20] VITALS: Ht 162.6 cm; Wt 51.2 kg
[2025-03-22 11:05] VITALS: BP 133/94
== END 2025-03-22 13:15 | disposition home or self-care (01) | DRG 689 ==
LOC: ER 17:04 → ERHOLD 20:40 → PCU 20:40
PROVIDERS: ADMIT Internal Medicine
DX: N39.0 Urinary tract infection, site not specified (principal); G93.41 Metabolic encephalopathy; I50.32 Chronic diastolic (congestive) heart failure; J44.9 Chronic obstructive pulmonary disease, unspecified; I87.8 Other specified disorders of veins; F17.200 Nicotine dependence, unspecified, uncomplicated; Z66 Do not resuscitate; Z96.641 Presence of right artificial hip joint; Z60.2 Problems related to living alone; Z97.4 Presence of external hearing-aid; Z71.6 Tobacco abuse counseling; Z88.0 Allergy status to penicillin; Z88.1 Allergy status to other antibiotic agents; Z88.8 Allergy status to other drugs, medicaments and biological substances; Z79.82 Long term (current) use of aspirin

== ENCOUNTER 2025-04-05 01:34 | Emergency (ER) | payer MEDICARE ==
[~2025-04-05] VITALS: Ht 157.5 cm; Wt 51.3 kg
[~2025-04-05 01:34] MED LIST changes: +CEPH500 PO
[2025-04-05 03:11] LABS: BASOPHILS ABSOLUTE AUTO 0.04 K/mm3 (0.00-0.23); BASOPHILS PERCENT AUTO 0 % (0-2); EOSINOPHILS ABSOLUTE AUTO 0.22 K/mm3 (0.00-0.68); EOSINOPHILS PERCENT AUTO 2 % (0-6); Hematocrit 36.2 % (33.0-51.0); Hemoglobin 11.7 g/dL (11.5-16.0); IMMATURE GRAN ABSOLUTE AUTO 0.05 K/mm3 (0.00-0.10); IMMATURE GRAN PERCENT AUTO 0 % (0-1); LYMPHOCYTES PERCENT AUTO 4 % (21-46); MONOCYTES ABSOLUTE AUTO 0.97 K/mm3 (0.16-1.47); MONOCYTES PERCENT AUTO 9 % (4-13); Mean Corpuscular HGB 31.5 pg (26.0-34.0); Mean Corpuscular HGB Conc 32.3 g/dL (31.5-36.5); Mean Corpuscular Volume 98 fL (80-100); NEUTROPHILS ABSOLUTE AUTO 9.78 K/mm3 (1.96-9.15); NEUTROPHILS PERCENT AUTO 85 % (41-73); RDW Coefficient Variation 13.3 % (11.7-14.2); RDW Standard Deviation 47.9 fL (35.1-46.3); Red Blood Cell Count 3.71 M/mm3 (3.80-5.20); White Blood Cell Count 11.46 K/mm3 (4.00-11.30)
[2025-04-05 03:22] LABS: Albumin/Globulin Ratio 0.9 (0.8-1.8); Bilirubin, Total 0.5 mg/dL (0.1-1.0); Bun/Creatinine Ratio 21.9 (12.0-20.0); Calcium, Blood 8.5 mg/dL (8.5-10.1); Creatinine, Blood 0.46 mg/dL (0.40-1.00); Globulin, Blood 3.2 g/dL (2.2-4.0); Total Protein, Blood 6.2 g/dL (6.4-8.2)
[2025-04-05] MEDS ORDERED: Ketorolac Tromethamine 15mg Vial IV ONE (03:50)
[2025-04-05] MEDS ORDERED: Ciprofloxacin 500 MG Tab PO ONE (05:45)
[2025-04-05 06:35] LABS: Source, Urine Clean Catch
[2025-04-05 06:39] LABS: Appearance, Urine Clear (Clear); Bilirubin, Urine Neg (Neg); Blood, Urine 1+ (Neg); Color, Urine Yellow (P-Yellow); Glucose Qualitative, Urine Neg (Neg); Ketones, Urine Neg (Neg); Leukocyte Esterase, Urine Neg (Neg); Nitrite, Urine Neg (Neg); Protein, Urine 2+ (Neg); Urobilinogen, Urine 1+ (Normal)
[2025-04-05 06:46] LABS: Bacteria Not Seen /hpf; Red Blood Cells, Urine 0-2 /hpf (0-2); Squamous Epithelial Cells Rare /hpf (Few); White Blood Cells, Urine 0-2 /hpf (0-5)
[2025-04-05] MEDS ORDERED: Methocarbamol 500 MG Tab PO ONE (16:10)
[2025-04-05] MEDS ORDERED: Furosemide 10 MG / ML 2ML Vial IV ONE (17:20)
[2025-04-05] MEDS ORDERED: Furosemide 20 MG Tab PO ONE (18:35)
[2025-04-06 09:14] VITALS: BP 140/101
[2025-04-20] MEDS ORDERED: Nitrofurantoin100 M1 PO (01:21)
[2025-04-21] MEDS ORDERED: LEVE500 PO (14:01)
== END 2025-04-06 09:36 | disposition home or self-care (01) ==
LOC: ER 01:34
PROVIDERS: Emergency Medicine
DX: R10.9 Unspecified abdominal pain (principal); M54.50 Low back pain, unspecified; G89.29 Other chronic pain; N39.0 Urinary tract infection, site not specified; D72.829 Elevated white blood cell count, unspecified; J44.9 Chronic obstructive pulmonary disease, unspecified; F17.210 Nicotine dependence, cigarettes, uncomplicated; Z86.73 Personal history of transient ischemic attack (TIA), and cerebral infarction without residual deficits; Z79.82 Long term (current) use of aspirin; Z79.899 Other long term (current) drug therapy; Z88.0 Allergy status to penicillin; Z88.5 Allergy status to narcotic agent; Z88.8 Allergy status to other drugs, medicaments and biological substances
CPT/HCPCS: 51701; 74177; 80053; 81001; 83690; 83880; 85025; 93005; 93010; 96374-59; 99285-25; A6590; A9270; J1885; J1938; Q9967

== ENCOUNTER → 2025-05-07 | Outpatient (CLI) | payer MEDICARE ==
[~2025-05-07] MED LIST changes: +LEVE500 PO; +Nitrofurantoin100 M1 PO
[2025-05-07 11:19] LABS: BASOPHILS ABSOLUTE AUTO 0.05 K/mm3 (0.00-0.23); BASOPHILS PERCENT AUTO 1 % (0-2); EOSINOPHILS ABSOLUTE AUTO 0.08 K/mm3 (0.00-0.68); EOSINOPHILS PERCENT AUTO 2 % (0-6); Hematocrit 44.5 % (33.0-51.0); Hemoglobin 13.4 g/dL (11.5-16.0); IMMATURE GRAN ABSOLUTE AUTO 0.01 K/mm3 (0.00-0.10); IMMATURE GRAN PERCENT AUTO 0 % (0-1); LYMPHOCYTES ABSOLUTE AUTO 0.71 K/mm3 (0.84-5.20); LYMPHOCYTES PERCENT AUTO 16 % (21-46); MONOCYTES ABSOLUTE AUTO 0.47 K/mm3 (0.16-1.47); MONOCYTES PERCENT AUTO 11 % (4-13); Mean Corpuscular HGB Conc 30.1 g/dL (31.5-36.5); Mean Corpuscular Volume 100 fL (80-100); NEUTROPHILS ABSOLUTE AUTO 3.13 K/mm3 (1.96-9.15); NEUTROPHILS PERCENT AUTO 70 % (41-73); NRBC ABSOLUTE 0.00 K/mm3 (0.00-0.02); NRBC Auto 0.0 /100 WBC (0.0-0.2); Platelet Count 182 K/mm3 (150-400); RDW Coefficient Variation 13.8 % (11.7-14.2); RDW Standard Deviation 50.6 fL (35.1-46.3)
[2025-05-07 11:30] LABS: Alanine Aminotransfer (ALT/SGP 20.0 U/L (12-78); Albumin, Blood 3.3 g/dL (3.4-5.0); Albumin/Globulin Ratio 0.9 (0.8-1.8); Anion Gap 8.0 mmol/L (3-11); Aspartate Aminotrans (AST/SGOT 20.0 U/L (12-37); Bilirubin, Total 0.5 mg/dL (0.1-1.0); Blood Urea Nitrogen 14.0 mg/dL (8-24); CO2, Blood 39.0 mmol/L (21-32); Calcium, Blood 8.8 mg/dL (8.5-10.1); Chloride, Blood 101.0 mmol/L (98-108); Creatinine, Blood 0.52 mg/dL (0.40-1.00); Globulin, Blood 3.5 g/dL (2.2-4.0); Glucose, Blood 116.0 mg/dL (70-99); Potassium, Blood 4.3 mmol/L (3.5-5.5); Sodium, Blood 144.0 mmol/L (136-145); Total Protein, Blood 6.8 g/dL (6.4-8.2)
== END | disposition home or self-care (01) ==
LOC: LAB 11:14 → LAB SHORT 11:14
DX: R31.9 Hematuria, unspecified (principal); R10.9 Unspecified abdominal pain
CPT/HCPCS: 80053; 85025; 87077; 87086; 87186